=== PATIENT | male | born 1995 | race Caucasian/White ===

== ENCOUNTER 2016-05-30 21:24 | Emergency (ER) | payer OTHER ==
[2016-05-30 22:02] LABS: MEAN CORPUSCULAR HEMOGLOBIN 30.4 pg (27.0-33.0); MEAN CORPUSCULAR HGB CONC 34.2 g/dl (32.0-36.5); MEAN CORPUSCULAR VOLUME 88.9 fl (80.0-96.0); RED CELL DISTRIBUTION WIDTH 12.1 % (11.5-14.5); WHITE BLOOD COUNT 7.2 K/mm3 (4.0-10.0)
[2016-05-30 22:38] LABS: BENZODIAZEPINES URINE NEGATIVE (NEGATIVE); COCAINE METABOLITE URINE NEGATIVE (NEGATIVE); CONTROL LINE INT CTR LINE PRESENT; METHADONE URINE NEGATIVE (NEGATIVE); OPIATES URINE POSITIVE (NEGATIVE); TRICYCLIC ANTIDEPRESS URINE NEGATIVE (NEGATIVE)
[2016-05-30 22:39] LABS: AMPHETAMINES LEVEL URINE POSITIVE (NEGATIVE)
[2016-05-30 22:51] LABS: ALBUMIN 4.7 GM/DL (3.2-5.2); ALBUMIN/GLOBULIN RATIO 1.62 (1.00-1.93); ALKALINE PHOSPHATASE 54 U/L (45-117); ALT/SGPT 23 U/L (12-78); ANION GAP 11 MEQ/L (8-16); AST/SGOT 23 U/L (15-37); BILIRUBIN,DIRECT 0.3 MG/DL (0.0-0.2); BILIRUBIN,TOTAL 1.2 MG/DL (0.2-1.0); BLOOD UREA NITROGEN 18 MG/DL (7-18); CALCIUM LEVEL 8.8 MG/DL (8.5-10.1); CARBON DIOXIDE LEVEL 28 MEQ/L (21-32); CHLORIDE LEVEL 101 MEQ/L (98-107); CREATININE FOR GFR 1.12 MG/DL (0.70-1.30); GLOMERULAR FILTRATION RATE > 60.0 (>60); GLUCOSE, FASTING 78 MG/DL (70-105); SODIUM LEVEL 140 MEQ/L (136-145); TOTAL PROTEIN 7.6 GM/DL (6.4-8.2)
--- NOTE | 2016-05-30 23:15 | EDDOCDS ---
Physician Documentation [facility] Name: Aden Zaman Jr Age: 21 yrs Sex: Male : 1995 Arrival Date: 05/30/2016 Time: 21:24 Bed 30 Private MD: Disposition: 05/30/16 23:08 Discharged to Home/Self Care. Impression: Major depressive disorder, single episode, mild. - Condition is Stable. - Discharge Instructions: Depression, Adult. - Medication Reconciliation, Local Pharmacy Hours form. - Follow up: [facility]; When: 2 - 3 days; Reason: Recheck today's complaints. - Problem is new. - Symptoms are resolved. - Notes: You were seen in the ED for a mental health evaluation. Bloodwork showed no acute findings and Psychiatry was consulted, who recommended that as you are having no thoughts of harming self or others you may return home to follow up with mental health as an outpatient for the depression - please call in the morning to arrange to be seen. Return to the ED for any worsening depression, thoughts of harming self or others or any other concerns. Historical: - Allergies: no known allergies; - Home Meds: 1. Carol Oral daily 2. Zoloft 100 mg oral tab (Last dose: 05/30/2016) 3. clonidine HCl 0.2 mg oral tab 1 tab 2 times per day (Last dose: 05/30/2016) 4. proair 2 puffs every 6 hours as needed 5. Hydroxyzine Unknown Oral (Last dose: 05/30/2016) - PMHx: Anxiety; Depression; Allergies, Seasonal; ADHD; - PSHx: jaw surgery; - Social history: Smoking status: Patient uses tobacco products, current every day smoker. Patient/guardian denies using alcohol, street drugs, No barriers to communication noted, The patient speaks fluent Burmese, Speaks appropriately for age. - Family history: Not pertinent. - : The pt / caregiver states he / she is not on anticoagulants. Home medication list is obtained from. - Exposure Risk Screening:: None identified. Vital Signs: 05/30 21:39 BP 129 / 67; Pulse 54; Resp 18; Temp 97.8; Pulse Ox 98% ; Height 6 ft. (182.88 cm); ajs Pain 0/10; MDM: 21:48 Consult PFS/PSA/Foreign Correspondent ordered. br1 21:48 Consult PFS/PSA/Foreign Correspondent: Patient's case requires discussion with on-call br1 Psychiatrist ordered. 21:48 PSA/PFS to call Nursing Mechanism Assembler, to enter patient data on [place] if patient br1 involuntarily admitted or transferred for SI or HI ordered. 21:48 Confirm accurate psychiatric medication list and times of last dosage ordered. br1 21:48 Detain Pt Until Medically/PFS Cleared ordered. br1 21:49 Acetaminophen Level Ordered. EDMS 21:49 Basic Metabolic Profile Ordered. EDMS 21:49 Complete Blood Count Ordered. EDMS 21:49 Drug Eval Toxicology ED Only Ordered. EDMS 21:49 Ethyl Alcohol (ethanol) Ordered. EDMS 21:49 Liver Profile Ordered. EDMS 21:49 Salicylate Level Ordered. EDMS 21:49 Thyroid Stimulating Hormone Ordered. EDMS 22:46 Drug Eval Toxicology ED Only Reviewed. br1 22:46 Complete Blood Count Reviewed. br1 22:57 Consult PFS/PSA/Foreign Correspondent complete. cl 22:57 Consult PFS/PSA/Foreign Correspondent: Patient's case requires discussion with on-call cl Psychiatrist complete. 22:57 PSA/PFS to call Nursing Mechanism Assembler, to enter patient data [place] if patient cl involuntarily admitted or transferred for SI or HI complete. 23:05 MHE Legal paperwork was scanned into [employer] and attached to record. cl 23:06 Acetaminophen Level Reviewed. br1 23:06 Liver Profile Reviewed. br1 23:06 Salicylate Level Reviewed. br1 23:06 Basic Metabolic Profile Reviewed. br1 23:06 Ethyl Alcohol (ethanol) Reviewed. br1 23:06 Thyroid Stimulating Hormone Reviewed. br1 23:07 Consult PFS/PSA/Socail Worker: Cleared medically for eval ordered. br1 23:08 Consult PFS/PSA/Socail Worker: Cleared medically for eval complete. cl Signatures: Dispatcher [employer] EDMS Sergio Nicole, PSA PSA cl Al Prakash MD MD br1 Kelley Corona,MOLD FILLER PLASTIC DOLLS MOLD FILLER PLASTIC DOLLS Elvira Riggs,RN RN ead MTDD
--- NOTE | 2016-05-30 23:15 | EDDOCDS ---
Nurse's Notes [facility] Name: Aden Zaman Jr Age: 21 yrs Sex: Male : 1995 Arrival Date: 05/30/2016 Time: 21:24 Bed 30 Private MD: Diagnosis: Major depressive disorder, single episode, mild Presentation: 05/30 21:41 Presenting complaint: Patient states: pt brought in by police. pt reports on/off ead relationship with girlfriend. pt also reports his uncle is sick. pt states he lives at [facility]. Pt denies SI/HI. Denies depression, reports anxiety. Presenting complaint: Patient states: pt also now reporting "I posted on facebook that I just wanna .". Mental Health Triage Level: Level 1- Pt displays no suicidal or homicidal ideations and does not appear to be a danger to self or others. Adult Sepsis Screening: The patient does not have new or worsening altered mentation. Patient's respiratory rate is less than 22. Systolic blood pressure is greater than 100. Patient has a qSOFA score of 0- Negative Sepsis Screen. Suicide/Homicide risk assessment- the patient denies having any suicidal and/or homicidal ideations and does not present with any other emotional, behavioral or mental health complaints. Status: Patient is not a parts and service manager or dependent. Transition of care: patient was not received from another setting of care. 21:41 Acuity: FRANKY Level 3 ead 21:41 Method Of Arrival: Police Car ead Triage Assessment: 21:45 General: Appears in no apparent distress, Behavior is cooperative, rocking side to side ead in bed, . Pain: Denies pain. HIV screening NA for this visit Offered previously. The patient is triaged at the bedside. See Assessment in Nurses Notes section of ED record. Neurological: Level of Consciousness is awake, alert, Oriented to person, place, time. Respiratory: Airway is patent Respiratory effort is even, unlabored. Derm: Skin is pink, warm & dry. Historical: - Allergies: no known allergies; - Home Meds: 1. Carol Oral daily 2. Zoloft 100 mg oral tab (Last dose: 05/30/2016) 3. clonidine HCl 0.2 mg oral tab 1 tab 2 times per day (Last dose: 05/30/2016) 4. proair 2 puffs every 6 hours as needed 5. Hydroxyzine Unknown Oral (Last dose: 05/30/2016) - PMHx: Anxiety; Depression; Allergies, Seasonal; ADHD; - PSHx: jaw surgery; - Social history: Smoking status: Patient uses tobacco products, current every day smoker. Patient/guardian denies using alcohol, street drugs, No barriers to communication noted, The patient speaks fluent Chadian, Speaks appropriately for age. - Family history: Not pertinent. - : The pt / caregiver states he / she is not on anticoagulants. Home medication list is obtained from. - Exposure Risk Screening:: None identified. Screenin:09 Screening information is obtained from the patient. Fall risk: No risks identified. kas2 Assistance ADL's: requires no assistance with activities of daily living. Abuse/DV Screen: The patient / caregiver reports he/she is: not in a situation that causes fear, pain or injury. Nutritional screening: No deficits noted. Advance Directives: Currently, there is no health care proxy. There is no active DNR order. There is no living will. There is no Power of Tours Hostess. home support is adequate. Assessment: 22:08 General: Appears in no apparent distress, comfortable, well nourished, well groomed, kas2 Behavior is anxious, cooperative. Pain: Denies pain. Neurological: Level of Consciousness is awake, alert, Oriented to person, place, time. Cardiovascular: Heart tones present Rhythm is regular. Respiratory: Airway is patent Respiratory effort is even, unlabored, Respiratory pattern is regular, symmetrical, Breath sounds are clear. Derm: Skin is intact, is healthy with good turgor, Skin is dry, Skin is pink, warm & dry. normal, Skin temperature is warm. 23:07 General: Appears in no apparent distress, comfortable, Behavior is cooperative. [facility] General: pt sitting on stretcher staff observing . Respiratory: Airway is patent Respiratory effort is even, unlabored. 23:13 Reassessment: Patient appears in no apparent distress at this time. [facility] Mental Health Eval: 22:24 Mental health consult is initiated at 22:00. Status: The patient is not a parts and service manager or dependent. [facility] Behavior[facility]: The patient is not an established patient of [facility]. Referral Information: Evaluation referral is generated by a police agency: [employer] #[id number] pick-up order 9:41. The patient was referred for evaluation because Pt reports writing on Facebook, "If you want to see someone jump off a bridge, come to watch", Pt denies being suicidal or wanting to kill anyone. Pt reports writing it because he wants his XGF to be with him again, but realizes she is only 17 and giving him mixed messages about their short relationship. 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 Pt admits to no inpatient psyche history except going to [facility] as a foster child and being turned around after they interviewed him. Pt reports he has a hard time finding the right GF and falls in love to quickly. Pt reports he is compliant with his medications, and therapy, but does not like his female therapist, prefers a male counselor. Pt resides at [facility] and likes living there, per pt. Pt reports no change in sleeping, or eating, no drug or alcohol use, he is on Probation for stealing a 2015 jeep out of a dealer ship, and is taking it "very seriously" Pt denies being depressed, just feels sick in side and needed to talk to someone. Subjective: The patients chief complaint is Lonely and broken hearted, trying to get his GF back, pt reports "being stupid", pt is CFS and will try to get a male counselor if possible from [facility]. Delusions are denied. Patient's mood is anxious, Hallucinations are denied. Mental Health history: ADHD, anxiety, depression, Mental Health Admissions: [facility] at age 15, turned around at the door after being interviewed, per pt Current Outpatient Mental Health Services: Therapist / Agency: [facility], agency and is a resident. Current living environment is The patient currently lives in a [facility] residence. The patient is single. Patient presents to Emergency Department with the following symptoms within the past 2 weeks: agitation, anger. Substance abuse: Pt denies. Mental status exam: Patients appearance is appropriate, Patient's behavior is cooperative, Speech is normal. Affect is appropriate. Mood is anxious. Hallucinations are denied. Appetite is normal. Memory is good. Energy level is tires easily. Content of thought is normal. Thought process is intact. Cognitive level is oriented to person, place, time and situation Patient's insight is fair. Judgement is poor. Rapport with interviewer is good. Suicidal Ideation is denied. Homicidal ideation is not present. Disposition: Medically cleared for disposition by Al Prakash MD. 22:55 Disposition: Psychiatric Consult is performed by phone with Dr Addy Bernabe The cs patient has a safe destination which is [facility] with follow up tomorrow with his counselor The patient's discharge transportation plan is by cab. A cab voucher is provided to the patient. Vital Signs: 21:39 BP 129 / 67; Pulse 54; Resp 18; Temp 97.8; Pulse Ox 98% ; Height 6 ft. (182.88 cm); ajs Pain 0/10; Vitals: 21:24 Log In time N/A- police car arrival. ead ED Course: 21:28 Patient visited by Tammy Lowry. gjb 21:28 Patient moved to Waiting gjb 21:29 Patient moved to I ajs 21:39 Al Prakash MD is Attending Physician. br1 21:44 Triage Initiated ead 21:46 Patient visited by Radha Leon. ajs 21:46 Pt greeted and oriented to ED. Patient advised of names of staff involved in care, ajs location of call [place], wait times and NPO status. Patient has correct armband on for positive identification. Placed in psych safe attire. Bed in low position. Call light in reach. Side rails up X 1. Security observing. Property removed, inventory done, secured in belongings bag- placed in locked locker. Psych Safety Check: Location: PSYCH OVERFLOW 29. Visual Assessment: Cooperative. 22:00 Acetaminophen Level Sent. ajs 22:00 Basic Metabolic Profile Sent. ajs 22:00 Complete Blood Count Sent. ajs 22:00 Drug Eval Toxicology ED Only Sent. ajs 22:00 Ethyl Alcohol (ethanol) Sent. ajs 22:00 Liver Profile Sent. ajs 22:00 Salicylate Level Sent. ajs 22:00 Thyroid Stimulating Hormone Sent. ajs 22:01 Patient visited by Omero Elena. jp4 22:09 Patient visited by Cadence Trent RN. kas2 22:14 Patient visited by Omero Elena. jp4 22:28 Patient visited by Omero Elena. jp4 22:30 Patient visited by Al Prakash MD. br1 22:35 Patient visited by Cadence Trent RN. kas2 22:36 Patient visited by Radha Leon. ajs 22:36 Diet: Patient given regular meal. Tolerated well. ajs 22:37 Patient moved to 30 ajs 22:45 Patient visited by Omero Elena. jp4 22:56 Patient visited by Omero Elena. jp4 23:05 E Legal paperwork was scanned into [employer] and attached to record. cl 23:07 Kelley Corona LPN is Primary Nurse. slm 23:08 [facility] is Referral Physician. br1 23:14 Patient visited by Kelley Corona LPN. slm 23:14 The patient / caregiver is instructed regarding the plan of care and ED course. slm 23:14 No IV's were initiated during this patient's visit. No procedures done that require slm assistance. Labs drawn. (by ED staff). Sent per order to lab. Urine collected. Urine specimen sent to lab. Attachments: 23:05 E Legal paperwork cl Order Results: Lab Order: Acetaminophen Level; SPEC'M 05/30/16 21:52 Test: ACETAMINOPHEN LEVEL; Value: < 2.0; Range: 10.0-30.0; Abnormal: Below low normal; Units: UG/ML; Status: F Lab Order: Basic Metabolic Profile; SPEC'M 05/30/16 21:52 Test: GLUCOSE, FASTING; Value: 78; Range: 70-105; Units: MG/DL; Status: F Test: BLOOD UREA NITROGEN; Value: 18; Range: 7-18; Units: MG/DL; Status: F Test: CREATININE FOR GFR; Value: 1.12; Range: 0.70-1.30; Units: MG/DL; Status: F Test: GLOMERULAR FILTRATION RATE; Value: > 60.0; Range: >60; Status: F Test: SODIUM LEVEL; Value: 140; Range: 136-145; Units: MEQ/L; Status: F Test: POTASSIUM SERUM; Value: 4.0; Range: 3.5-5.1; Units: MEQ/L; Status: F Test: CHLORIDE LEVEL; Value: 101; Range: 98-107; Units: MEQ/L; Status: F Test: CARBON DIOXIDE LEVEL; Value: 28; Range: 21-32; Units: MEQ/L; Status: F Test: ANION GAP; Value: 11; Range: 8-16; Units: MEQ/L; Status: F Test: CALCIUM LEVEL; Value: 8.8; Range: 8.5-10.1; Units: MG/DL; Status: F Test Note: ; Units are mL/min/1.73 m2 Chronic Kidney Disease Staging per NKF: Stage I & II GFR >=60 Normal to Mildly Decreased Stage III GFR 30-59 Moderately Decreased Stage IV GFR 15-29 Severely Decreased Stage V GFR <15 Very Little GFR Left ESRD GFR <15 on X RAY TECH Lab Order: Complete Blood Count; SPEC'M 05/30/16 21:52 Test: WHITE BLOOD COUNT; Value: 7.2; Range: 4.0-10.0; Units: K/mm3; Status: F Test: RED BLOOD COUNT; Value: 5.19; Range: 4.30-6.10; Units: M/mm3; Status: F Test: HEMOGLOBIN; Value: 15.8; Range: 14.0-18.0; Units: g/dl; Status: F Test: HEMATOCRIT; Value: 46.2; Range: 42.0-52.0; Units: %; Status: F Test: MEAN CORPUSCULAR VOLUME; Value: 88.9; Range: 80.0-96.0; Units: fl; Status: F Test: MEAN CORPUSCULAR HEMOGLOBIN; Value: 30.4; Range: 27.0-33.0; Units: pg; Status: F Test: MEAN CORPUSCULAR HGB CONC; Value: 34.2; Range: 32.0-36.5; Units: g/dl; Status: F Test: RED CELL DISTRIBUTION WIDTH; Value: 12.1; Range: 11.5-14.5; Units: %; Status: F Test: PLATELET COUNT, AUTOMATED; Value: 230; Range: 150-450; Units: k/mm3; Status: F Lab Order: Drug Eval Toxicology ED Only; SPEC'M 05/30/16 22:15 Test: AMPHETAMINES LEVEL URINE; Value: POSITIVE; Range: NEGATIVE; Abnormal: Above high normal; Status: F Test: BARBITURATES URINE; Value: NEGATIVE; Range: NEGATIVE; Status: F Test: BENZODIAZEPINES URINE; Value: NEGATIVE; Range: NEGATIVE; Status: F Test: CANNABINOIDS URINE; Value: NEGATIVE; Range: NEGATIVE; Status: F Test: COCAINE METABOLITE URINE; Value: NEGATIVE; Range: NEGATIVE; Status: F Test: METHADONE URINE; Value: NEGATIVE; Range: NEGATIVE; Status: F Test: OPIATES URINE; Value: POSITIVE; Range: NEGATIVE; Abnormal: Above high normal; Status: F Test: TRICYCLIC ANTIDEPRESS URINE; Value: NEGATIVE; Range: NEGATIVE; Status: F Test Note: ; ALL PRESUMPTIVE POSITIVE FINDINGS ARE UNCONFIRMED NORMAL VALUES THRESHOLD IN NG/ML AMPHETAMINES 1000 METHAMPHETAMINES 1000 BARBITURATES 300 BENZODIAZEPINES 300 CANNABINOIDS (THC) 50 COCAINE METABOLITE 300 METHADONE 300 OPIATES 300 PHENCYCLIDINE 25 TRICYCLIC ANTIDEPRESSANTS 1000 RESULTS ARE FOR MEDICAL PURPOSES ONLY. ALL URINE SPECIMENS WILL BE SAVED FOR 3 DAYS. IF CONFIRMATION OF A PRESUMPTIVE POSTIVE SCREEN RESULT IS DESIRED, CALL CHEMISTRY ([phone]) AND REQUEST URINE TO BE SENT TO REFERENCE LAB. FOR A LIST OF CLOSELY RELATED COMPOUNDS PLEASE CALL THE LAB. Lab Order: Ethyl Alcohol (ethanol); SPEC'M 05/30/16 21:52 Test: ETHYL ALCOHOL (ETHANOL); Value: < 0.003; Range: 0.000-0.010; Units: %; Status: F Lab Order: Liver Profile; SPEC'M 05/30/16 21:52 Test: AST/SGOT; Value: 23; Range: 15-37; Units: U/L; Status: F Test: ALT/SGPT; Value: 23; Range: 12-78; Units: U/L; Status: F Test: ALKALINE PHOSPHATASE; Value: 54; Range: 45-117; Units: U/L; Status: F Test: BILIRUBIN,TOTAL; Value: 1.2; Range: 0.2-1.0; Abnormal: Above high normal; Units: MG/DL; Status: F Test: BILIRUBIN,DIRECT; Value: 0.3; Range: 0.0-0.2; Abnormal: Above high normal; Units: MG/DL; Status: F Test: TOTAL PROTEIN; Value: 7.6; Range: 6.4-8.2; Units: GM/DL; Status: F Test: ALBUMIN; Value: 4.7; Range: 3.2-5.2; Units: GM/DL; Status: F Test: ALBUMIN/GLOBULIN RATIO; Value: 1.62; Range: 1.00-1.93; Status: F Lab Order: Salicylate Level; SPEC'M 05/30/16 21:52 Test: SALICYLATE LEVEL; Value: < 1.7; Range: 5.0-30.0; Abnormal: Below low normal; Units: MG/DL; Status: F Lab Order: Thyroid Stimulating Hormone; SPEC'M 05/30/16 21:52 Test: THYROID STIMULATING HORMONE; Value: 0.572; Range: 0.358-3.740; Units: uIU/ML; Status: F Outcome: 23:08 Discharge ordered by Provider. br1 23:13 Discharge Assessment: Patient awake, alert and oriented x 3. No cognitive and/or slm functional deficits noted. Patient verbalized understanding of disposition instructions. patient administered narcotics - no. The following High Risk Discharge criteria are identified: None. Discharged to home ambulatory, via cab pt seen by and LIZZIE no concerns. Condition: good. Discharge instructions given to patient, Instructed on discharge instructions, follow up and referral plans. Demonstrated understanding of instructions, Pt was receptive of discharge instructions/ teaching. No special radiology studies were completed. 23:15 Patient left the ED. slm Signatures: Sergio Nicole, PSA PSA cl Simon Hester, PSA PSA cs Al Prakash MD MD br1 Radha Leon Stephanie, LPN LPN slm Elvira Valentine,RN RN Omero Ivory Gabriela gjb Smith, KimRN RN kas2 AUDREY
--- NOTE | 2016-06-02 00:16 | EDDOCDS ---
Physician Documentation [facility] Name: Aden Zaman Jr Age: 21 yrs Sex: Male : 1995 Arrival Date: 05/30/2016 Time: 21:24 Bed 30 Private MD: Disposition: 05/30/16 23:08 Discharged to Home/Self Care. Impression: Major depressive disorder, single episode, mild. - Condition is Stable. - Discharge Instructions: Depression, Adult. - Medication Reconciliation, Local Pharmacy Hours form. - Follow up: [facility]; When: 2 - 3 days; Reason: Recheck today's complaints. - Problem is new. - Symptoms are resolved. - Notes: You were seen in the ED for a mental health evaluation. Bloodwork showed no acute findings and Psychiatry was consulted, who recommended that as you are having no thoughts of harming self or others you may return home to follow up with mental health as an outpatient for the depression - please call in the morning to arrange to be seen. Return to the ED for any worsening depression, thoughts of harming self or others or any other concerns. Historical: - Allergies: no known allergies; - Home Meds: 1. Carol Oral daily 2. Zoloft 100 mg oral tab (Last dose: 05/30/2016) 3. clonidine HCl 0.2 mg oral tab 1 tab 2 times per day (Last dose: 05/30/2016) 4. proair 2 puffs every 6 hours as needed 5. Hydroxyzine Unknown Oral (Last dose: 05/30/2016) - PMHx: Anxiety; Depression; Allergies, Seasonal; ADHD; - PSHx: jaw surgery; - Social history: Smoking status: Patient uses tobacco products, current every day smoker. Patient/guardian denies using alcohol, street drugs, No barriers to communication noted, The patient speaks fluent Niuean, Speaks appropriately for age. - Family history: Not pertinent. - : The pt / caregiver states he / she is not on anticoagulants. Home medication list is obtained from. - Exposure Risk Screening:: None identified. Vital Signs: 05/30 21:39 BP 129 / 67; Pulse 54; Resp 18; Temp 97.8; Pulse Ox 98% ; Height 6 ft. (182.88 cm); ajs Pain 0/10; MDM: 21:48 Consult PFS/PSA/Grants Administrator ordered. br1 21:48 Consult PFS/PSA/Grants Administrator: Patient's case requires discussion with on-call br1 Psychiatrist ordered. 21:48 PSA/PFS to call Nursing Rubber Grinder, to enter [place] data [place] if patient br1 involuntarily admitted or transferred for SI or HI ordered. 21:48 Confirm accurate psychiatric medication list and times of last dosage ordered. br1 21:48 Detain Pt Until Medically/PFS Cleared ordered. br1 21:49 Acetaminophen Level Ordered. EDMS 21:49 Basic Metabolic Profile Ordered. EDMS 21:49 Complete Blood Count Ordered. EDMS 21:49 Drug Eval Toxicology ED Only Ordered. EDMS 21:49 Ethyl Alcohol (ethanol) Ordered. EDMS 21:49 Liver Profile Ordered. EDMS 21:49 Salicylate Level Ordered. EDMS 21:49 Thyroid Stimulating Hormone Ordered. EDMS 22:46 Drug Eval Toxicology ED Only Reviewed. br1 22:46 Complete Blood Count Reviewed. br1 22:57 Consult PFS/PSA/Grants Administrator complete. cl 22:57 Consult PFS/PSA/Grants Administrator: Patient's case requires discussion with on-call cl Psychiatrist complete. 22:57 PSA/PFS to call Nursing Rubber Grinder, to enter patient data [place] if patient cl involuntarily admitted or transferred for SI or HI complete. 23:05 MHE Legal paperwork was scanned into [employer] and attached to record. cl 23:06 Acetaminophen Level Reviewed. br1 23:06 Liver Profile Reviewed. br1 23:06 Salicylate Level Reviewed. br1 23:06 Basic Metabolic Profile Reviewed. br1 23:06 Ethyl Alcohol (ethanol) Reviewed. br1 23:06 Thyroid Stimulating Hormone Reviewed. br1 23:07 Consult PFS/PSA/Socail Worker: Cleared medically for eval ordered. br1 23:08 Consult PFS/PSA/Socail Worker: Cleared medically for eval complete. cl 06/01 08:44 T-Sheet-- Draft Copy was scanned into [employer] and attached to record. gb Signatures: Dispatcher [employer] EDMS Sergio Nicole, PSA PSA cl Arlin Smith, Reg Reg gb Al Prakash MD MD br1 Kelley Corona LPN LPN Elvira Riggs,RN RN em The chart was reviewed and I authenticate all verbal orders and agree with the evaluation and treatment provided.Attachments: 06/01 08:44 T-Sheet-- Draft Copy gb Chart Complete MTDD
--- NOTE | 2016-06-02 00:16 | EDDOCDS ---
Physician Documentation [facility] Name: Aden Zaman Jr Age: 21 yrs Sex: Male : 1995 Arrival Date: 05/30/2016 Time: 21:24 Bed 30 Private MD: Disposition: 05/30/16 23:08 Discharged to Home/Self Care. Impression: Major depressive disorder, single episode, mild. - Condition is Stable. - Discharge Instructions: Depression, Adult. - Medication Reconciliation, Local Pharmacy Hours form. - Follow up: [facility]; When: 2 - 3 days; Reason: Recheck today's complaints. - Problem is new. - Symptoms are resolved. - Notes: You were seen in the ED for a mental health evaluation. Bloodwork showed no acute findings and Psychiatry was consulted, who recommended that as you are having no thoughts of harming self or others you may return home to follow up with mental health as an outpatient for the depression - please call in the morning to arrange to be seen. Return to the ED for any worsening depression, thoughts of harming self or others or any other concerns. Historical: - Allergies: no known allergies; - Home Meds: 1. Carol Oral daily 2. Zoloft 100 mg oral tab (Last dose: 05/30/2016) 3. clonidine HCl 0.2 mg oral tab 1 tab 2 times per day (Last dose: 05/30/2016) 4. proair 2 puffs every 6 hours as needed 5. Hydroxyzine Unknown Oral (Last dose: 05/30/2016) - PMHx: Anxiety; Depression; Allergies, Seasonal; ADHD; - PSHx: jaw surgery; - Social history: Smoking status: Patient uses tobacco products, current every day smoker. Patient/guardian denies using alcohol, street drugs, No barriers to communication noted, The patient speaks fluent [place], Speaks appropriately for age. - Family history: Not pertinent. - : The pt / caregiver states he / she is not on anticoagulants. Home medication list is obtained from. - Exposure Risk Screening:: None identified. Vital Signs: 05/30 21:39 BP 129 / 67; Pulse 54; Resp 18; Temp 97.8; Pulse Ox 98% ; Height 6 ft. (182.88 cm); ajs Pain 0/10; MDM: 21:48 Consult PFS/PSA/Desizing Pad Operator ordered. br1 21:48 Consult PFS/PSA/Desizing Pad Operator: Patient's case requires discussion with on-call br1 Psychiatrist ordered. 21:48 PSA/PFS to call Nursing Traffic Coordinator, to enter patient data on [place] Safe Act if patient br1 involuntarily admitted or transferred for SI or HI ordered. 21:48 Confirm accurate psychiatric medication list and times of last dosage ordered. br1 21:48 Detain Pt Until Medically/PFS Cleared ordered. br1 21:49 Acetaminophen Level Ordered. EDMS 21:49 Basic Metabolic Profile Ordered. EDMS 21:49 Complete Blood Count Ordered. EDMS 21:49 Drug Eval Toxicology ED Only Ordered. EDMS 21:49 Ethyl Alcohol (ethanol) Ordered. EDMS 21:49 Liver Profile Ordered. EDMS 21:49 Salicylate Level Ordered. EDMS 21:49 Thyroid Stimulating Hormone Ordered. EDMS 22:46 Drug Eval Toxicology ED Only Reviewed. br1 22:46 Complete Blood Count Reviewed. br1 22:57 Consult PFS/PSA/Desizing Pad Operator complete. cl 22:57 Consult PFS/PSA/Desizing Pad Operator: Patient's case requires discussion with on-call cl Psychiatrist complete. 22:57 PSA/PFS to call Nursing Traffic Coordinator, to enter patient data [place] Safe [place] if patient cl involuntarily admitted or transferred for SI or HI complete. 23:05 [facility] Legal paperwork was scanned into [employer] and attached to record. cl 23:06 Acetaminophen Level Reviewed. br1 23:06 Liver Profile Reviewed. br1 23:06 Salicylate Level Reviewed. br1 23:06 Basic Metabolic Profile Reviewed. br1 23:06 Ethyl Alcohol (ethanol) Reviewed. br1 23:06 Thyroid Stimulating Hormone Reviewed. br1 23:07 Consult PFS/PSA/Socail Worker: Cleared medically for eval ordered. br1 23:08 Consult PFS/PSA/Socail Worker: Cleared medically for eval complete. cl 06/01 08:44 T-Sheet-- Draft Copy was scanned into [employer] and attached to record. gb Signatures: Dispatcher [employer] EDMS Sergio Nicole, PSA PSA cl Arlin Smith, Reg Reg gb Al Prakash MD MD br1 Kelley Corona LPN LPN Elvira iRggs,RN RN em The chart was reviewed and I authenticate all verbal orders and agree with the evaluation and treatment provided.Attachments: 06/01 08:44 T-Sheet-- Draft Copy gb Chart Complete MTDD
--- NOTE | 2016-06-02 00:16 | EDDOCDS ---
Nurse's Notes [facility] Name: Aden Zaman Jr Age: 21 yrs Sex: Male : 1995 Arrival Date: 05/30/2016 Time: 21:24 Bed 30 Private MD: Diagnosis: Major depressive disorder, single episode, mild Presentation: 05/30 21:41 Presenting complaint: Patient states: pt brought in by police. pt reports on/off ead relationship with girlfriend. pt also reports his uncle is sick. pt states he lives at [facility]. Pt denies SI/HI. Denies depression, reports anxiety. Presenting complaint: Patient states: pt also now reporting "I posted on facebook that I just wanna .". Mental Health Triage Level: Level 1- Pt displays no suicidal or homicidal ideations and does not appear to be a danger to self or others. Adult Sepsis Screening: The patient does not have new or worsening altered mentation. Patient's respiratory rate is less than 22. Systolic blood pressure is greater than 100. Patient has a qSOFA score of 0- Negative Sepsis Screen. Suicide/Homicide risk assessment- the patient denies having any suicidal and/or homicidal ideations and does not present with any other emotional, behavioral or mental health complaints. Status: Patient is not a water softener service supervisor or dependent. Transition of care: patient was not received from another setting of care. 21:41 Acuity: FRANKY Level 3 ead 21:41 Method Of Arrival: Police Car ead Triage Assessment: 21:45 General: Appears in no apparent distress, Behavior is cooperative, rocking side to side ead in bed, . Pain: Denies pain. HIV screening NA for this visit Offered previously. The patient is triaged at the bedside. See Assessment in Nurses Notes section of ED record. Neurological: Level of Consciousness is awake, alert, Oriented to person, place, time. Respiratory: Airway is patent Respiratory effort is even, unlabored. Derm: Skin is pink, warm & dry. Historical: - Allergies: no known allergies; - Home Meds: 1. Carol Oral daily 2. Zoloft 100 mg oral tab (Last dose: 05/30/2016) 3. clonidine HCl 0.2 mg oral tab 1 tab 2 times per day (Last dose: 05/30/2016) 4. proair 2 puffs every 6 hours as needed 5. Hydroxyzine Unknown Oral (Last dose: 05/30/2016) - PMHx: Anxiety; Depression; Allergies, Seasonal; ADHD; - PSHx: jaw surgery; - Social history: Smoking status: Patient uses tobacco products, current every day smoker. Patient/guardian denies using alcohol, street drugs, No barriers to communication noted, The patient speaks fluent [place]er, Speaks appropriately for age. - Family history: Not pertinent. - : The pt / caregiver states he / she is not on anticoagulants. Home medication list is obtained from. - Exposure Risk Screening:: None identified. Screenin:09 Screening information is obtained from the patient. Fall risk: No risks identified. kas2 Assistance ADL's: requires no assistance with activities of daily living. Abuse/DV Screen: The patient / caregiver reports he/she is: not in a situation that causes fear, pain or injury. Nutritional screening: No deficits noted. Advance Directives: Currently, there is no health care proxy. There is no active DNR order. There is no living will. There is no Power of [facility]. home support is adequate. Assessment: 22:08 General: Appears in no apparent distress, comfortable, well nourished, well groomed, kas2 Behavior is anxious, cooperative. Pain: Denies pain. Neurological: Level of Consciousness is awake, alert, Oriented to person, place, time. Cardiovascular: Heart tones present Rhythm is regular. Respiratory: Airway is patent Respiratory effort is even, unlabored, Respiratory pattern is regular, symmetrical, Breath sounds are clear. Derm: Skin is intact, is healthy with good turgor, Skin is dry, Skin is pink, warm & dry. normal, Skin temperature is warm. 23:07 General: Appears in no apparent distress, comfortable, Behavior is cooperative. [facility] General: pt sitting on stretcher staff observing . Respiratory: Airway is patent Respiratory effort is even, unlabored. 23:13 Reassessment: Patient appears in no apparent distress at this time. [facility] Mental Health Eval: 22:24 Mental health consult is initiated at 22:00. Status: The patient is not a water softener service supervisor or dependent. [facility] Behavioral Health: The patient is not an established patient of [facility] Behavioral Health. Referral Information: Evaluation referral is generated by a police agency: [employer] diaz #[id number] pick-up order 9:41. The patient was referred for evaluation because Pt reports writing on Facebook, "If you want to see someone jump off a bridge, come to watch", Pt denies being suicidal or wanting to kill anyone. Pt reports writing it because he wants his XGF to be with him again, but realizes she is only 17 and giving him mixed messages about their short relationship. 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 Pt admits to no inpatient psyche history except going to [facility] as a foster child and being turned around after they interviewed him. Pt reports he has a hard time finding the right GF and falls in love to quickly. Pt reports he is compliant with his medications, and therapy, but does not like his female therapist, prefers a male counselor. Pt resides at [facility] and likes living there, per pt. Pt reports no change in sleeping, or eating, no drug or alcohol use, he is on Probation for stealing a 2015 jeep out of a dealer ship, and is taking it "very seriously" Pt denies being depressed, just feels sick in side and needed to talk to someone. 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 Delusions are denied. Patient's mood is anxious, Hallucinations are denied. Mental Health history: ADHD, anxiety, depression, Mental Health Admissions: [facility] at age 15, turned around at the door after being interviewed, per pt Current Outpatient Mental Health Services: Therapist / Agency: [facility], agency and is a resident. Current living environment is The patient currently lives in a [facility] residence. The patient is single. Patient presents to Emergency Department with the following symptoms within the past 2 weeks: agitation, anger. Substance abuse: Pt denies. Mental status exam: Patients appearance is appropriate, Patient's behavior is cooperative, Speech is normal. Affect is appropriate. Mood is anxious. Hallucinations are denied. Appetite is normal. Memory is good. Energy level is tires easily. Content of thought is normal. Thought process is intact. Cognitive level is oriented to person, place, time and situation Patient's insight is fair. Judgement is poor. Rapport with interviewer is good. Suicidal Ideation is denied. Homicidal ideation is not present. Disposition: Medically cleared for disposition by Al Prakash MD. 22:55 Disposition: Psychiatric Consult is performed by phone with Dr Addy Bernabe The cs patient has a safe destination which is [facility] with follow up tomorrow with his counselor The patient's discharge transportation plan is by cab. A cab voucher is provided to the patient. Vital Signs: 21:39 BP 129 / 67; Pulse 54; Resp 18; Temp 97.8; Pulse Ox 98% ; Height 6 ft. (182.88 cm); ajs Pain 0/10; Vitals: 21:24 Log In time N/A- police car arrival. ead ED Course: 21:28 Patient visited by Tammy Lowry. gjb 21:28 Patient moved to Waiting gjb 21:29 Patient moved to I ajs 21:39 Al Prakash MD is Attending Physician. br1 21:44 Triage Initiated ead 21:46 Patient visited by Radha Leon. ajs 21:46 Pt greeted and oriented to ED. Patient advised of names of staff involved in care, ajs location of call [place], wait times and NPO status. Patient has correct armband on for positive identification. Placed in psych safe attire. Bed in low position. Call light in reach. Side rails up X 1. Security observing. Property removed, inventory done, secured in belongings bag- placed in locked locker. Psych Safety Check: Location: PSYCH OVERFLOW 29. Visual Assessment: Cooperative. 22:00 Acetaminophen Level Sent. ajs 22:00 Basic Metabolic Profile Sent. ajs 22:00 Complete Blood Count Sent. ajs 22:00 Drug Eval Toxicology ED Only Sent. ajs 22:00 Ethyl Alcohol (ethanol) Sent. ajs 22:00 Liver Profile Sent. ajs 22:00 Salicylate Level Sent. ajs 22:00 Thyroid Stimulating Hormone Sent. ajs 22:01 Patient visited by Omero Elena. jp4 22:09 Patient visited by Cadence Trent RN. kas2 22:14 Patient visited by Omero Elena. jp4 22:28 Patient visited by Omero Elena. jp4 22:30 Patient visited by Al Prakash MD. br1 22:35 Patient visited by Cadence Trent RN. kas2 22:36 Patient visited by Radha Leon. ajs 22:36 Diet: Patient given regular meal. Tolerated well. ajs 22:37 Patient moved to 30 ajs 22:45 Patient visited by Omero Elena. jp4 22:56 Patient visited by Omero Elena. jp4 23:05 E Legal paperwork was scanned into [employer] and attached to record. cl 23:07 Kelley Corona LPN is Primary Nurse. slm 23:08 [facility] is Referral Physician. br1 23:14 Patient visited by Kelley Corona LPN. slm 23:14 The patient / caregiver is instructed regarding the plan of care and ED course. slm 23:14 No IV's were initiated during this patient's visit. No procedures done that require [facility] assistance. Labs drawn. (by ED staff). Sent per order to lab. Urine collected. Urine specimen sent to lab. 06/01 08:44 T-Sheet-- Draft Copy was scanned into [employer] and attached to record. gb Attachments: 05/30 23:05 [facility] Legal paperwork cl Order Results: Lab Order: Acetaminophen Level; SPEC'M 05/30/16 21:52 Test: ACETAMINOPHEN LEVEL; Value: < 2.0; Range: 10.0-30.0; Abnormal: Below low normal; Units: UG/ML; Status: F Lab Order: Basic Metabolic Profile; SPEC'M 05/30/16 21:52 Test: GLUCOSE, FASTING; Value: 78; Range: 70-105; Units: MG/DL; Status: F Test: BLOOD UREA NITROGEN; Value: 18; Range: 7-18; Units: MG/DL; Status: F Test: CREATININE FOR GFR; Value: 1.12; Range: 0.70-1.30; Units: MG/DL; Status: F Test: GLOMERULAR FILTRATION RATE; Value: > 60.0; Range: >60; Status: F Test: SODIUM LEVEL; Value: 140; Range: 136-145; Units: MEQ/L; Status: F Test: POTASSIUM SERUM; Value: 4.0; Range: 3.5-5.1; Units: MEQ/L; Status: F Test: CHLORIDE LEVEL; Value: 101; Range: 98-107; Units: MEQ/L; Status: F Test: CARBON DIOXIDE LEVEL; Value: 28; Range: 21-32; Units: MEQ/L; Status: F Test: ANION GAP; Value: 11; Range: 8-16; Units: MEQ/L; Status: F Test: CALCIUM LEVEL; Value: 8.8; Range: 8.5-10.1; Units: MG/DL; Status: F Test Note: ; Units are mL/min/1.73 m2 Chronic Kidney Disease Staging per NKF: Stage I & II GFR >=60 Normal to Mildly Decreased Stage III GFR 30-59 Moderately Decreased Stage IV GFR 15-29 Severely Decreased Stage V GFR <15 Very Little GFR Left ESRD GFR <15 on DINING ROOM ATTENDANT Lab Order: Complete Blood Count; SPEC'M 05/30/16 21:52 Test: WHITE BLOOD COUNT; Value: 7.2; Range: 4.0-10.0; Units: K/mm3; Status: F Test: RED BLOOD COUNT; Value: 5.19; Range: 4.30-6.10; Units: M/mm3; Status: F Test: HEMOGLOBIN; Value: 15.8; Range: 14.0-18.0; Units: g/dl; Status: F Test: HEMATOCRIT; Value: 46.2; Range: 42.0-52.0; Units: %; Status: F Test: MEAN CORPUSCULAR VOLUME; Value: 88.9; Range: 80.0-96.0; Units: fl; Status: F Test: MEAN CORPUSCULAR HEMOGLOBIN; Value: 30.4; Range: 27.0-33.0; Units: pg; Status: F Test: MEAN CORPUSCULAR HGB CONC; Value: 34.2; Range: 32.0-36.5; Units: g/dl; Status: F Test: RED CELL DISTRIBUTION WIDTH; Value: 12.1; Range: 11.5-14.5; Units: %; Status: F Test: PLATELET COUNT, AUTOMATED; Value: 230; Range: 150-450; Units: k/mm3; Status: F Lab Order: Drug Eval Toxicology ED Only; SPEC'M 05/30/16 22:15 Test: AMPHETAMINES LEVEL URINE; Value: POSITIVE; Range: NEGATIVE; Abnormal: Above high normal; Status: F Test: BARBITURATES URINE; Value: NEGATIVE; Range: NEGATIVE; Status: F Test: BENZODIAZEPINES URINE; Value: NEGATIVE; Range: NEGATIVE; Status: F Test: CANNABINOIDS URINE; Value: NEGATIVE; Range: NEGATIVE; Status: F Test: COCAINE METABOLITE URINE; Value: NEGATIVE; Range: NEGATIVE; Status: F Test: METHADONE URINE; Value: NEGATIVE; Range: NEGATIVE; Status: F Test: OPIATES URINE; Value: POSITIVE; Range: NEGATIVE; Abnormal: Above high normal; Status: F Test: TRICYCLIC ANTIDEPRESS URINE; Value: NEGATIVE; Range: NEGATIVE; Status: F Test Note: ; ALL PRESUMPTIVE POSITIVE FINDINGS ARE UNCONFIRMED NORMAL VALUES THRESHOLD IN NG/ML AMPHETAMINES 1000 METHAMPHETAMINES 1000 BARBITURATES 300 BENZODIAZEPINES 300 CANNABINOIDS (THC) 50 COCAINE METABOLITE 300 METHADONE 300 OPIATES 300 PHENCYCLIDINE 25 TRICYCLIC ANTIDEPRESSANTS 1000 RESULTS ARE FOR MEDICAL PURPOSES ONLY. ALL URINE SPECIMENS WILL BE SAVED FOR 3 DAYS. IF CONFIRMATION OF A PRESUMPTIVE POSTIVE SCREEN RESULT IS DESIRED, CALL CHEMISTRY ([phone]) AND REQUEST URINE TO BE SENT TO REFERENCE LAB. FOR A LIST OF CLOSELY RELATED COMPOUNDS PLEASE CALL THE LAB. Lab Order: Ethyl Alcohol (ethanol); SPEC'M 05/30/16 21:52 Test: ETHYL ALCOHOL (ETHANOL); Value: < 0.003; Range: 0.000-0.010; Units: %; Status: F Lab Order: Liver Profile; SPEC'M 05/30/16 21:52 Test: AST/SGOT; Value: 23; Range: 15-37; Units: U/L; Status: F Test: ALT/SGPT; Value: 23; Range: 12-78; Units: U/L; Status: F Test: ALKALINE PHOSPHATASE; Value: 54; Range: 45-117; Units: U/L; Status: F Test: BILIRUBIN,TOTAL; Value: 1.2; Range: 0.2-1.0; Abnormal: Above high normal; Units: MG/DL; Status: F Test: BILIRUBIN,DIRECT; Value: 0.3; Range: 0.0-0.2; Abnormal: Above high normal; Units: MG/DL; Status: F Test: TOTAL PROTEIN; Value: 7.6; Range: 6.4-8.2; Units: GM/DL; Status: F Test: ALBUMIN; Value: 4.7; Range: 3.2-5.2; Units: GM/DL; Status: F Test: ALBUMIN/GLOBULIN RATIO; Value: 1.62; Range: 1.00-1.93; Status: F Lab Order: Salicylate Level; SPEC'M 05/30/16 21:52 Test: SALICYLATE LEVEL; Value: < 1.7; Range: 5.0-30.0; Abnormal: Below low normal; Units: MG/DL; Status: F Lab Order: Thyroid Stimulating Hormone; SPEC'M 05/30/16 21:52 Test: THYROID STIMULATING HORMONE; Value: 0.572; Range: 0.358-3.740; Units: uIU/ML; Status: F Outcome: 05/30 23:08 Discharge ordered by Provider. br1 23:13 Discharge Assessment: Patient awake, alert and oriented x 3. No cognitive and/or slm functional deficits noted. Patient verbalized understanding of disposition instructions. patient administered narcotics - no. The following High Risk Discharge criteria are identified: None. Discharged to home ambulatory, via cab pt seen by and LIZZIE no concerns. Condition: good. Discharge instructions given to patient, Instructed on discharge instructions, follow up and referral plans. Demonstrated understanding of instructions, Pt was receptive of discharge instructions/ teaching. No special radiology studies were completed. 23:15 Patient left the ED. slm Signatures: Sergio Nicole PSA PSA cl Sharlow, Charlie, PSA PSA cs Barnhardt, Gloria, Fermin Reg Al Prakash MD MD br1 Radha Leon Stephanie, LPN LPN Elvira Greco,RN RN Omero Ivory jp4 Tammy Lowry Kim,RN RN kas2 Chart Complete MTDD
== END 2016-05-30 23:15 | disposition home or self-care (01) ==
LOC: M ED 21:24
DX: F32.0 Major depressive disorder, single episode, mild (principal); F41.9 Anxiety disorder, unspecified; F90.9 Attention-deficit hyperactivity disorder, unspecified type; J30.2 Other seasonal allergic rhinitis; F17.200 Nicotine dependence, unspecified, uncomplicated; Z79.899 Other long term (current) drug therapy

== ENCOUNTER 2016-06-11 12:33 | Emergency (ER) | payer OTHER | END 2016-06-11 13:16 | disposition left against medical advice (07) | LOC: M ED 12:33 | DX: Z53.29 Procedure and treatment not carried out because of patient's decision for other reasons (principal) ==

== ENCOUNTER 2016-06-11 13:35 | Emergency (ER) | payer OTHER ==
--- NOTE | 2016-06-11 18:11 | EDDOCDS ---
Nurse's Notes [facility] Name: Aden Zaman Jr Age: 21 yrs Sex: Male : 1995 Arrival Date: 06/11/2016 Time: 13:35 Bed I9 / 22 Private MD: HANNA RAMÍREZ Diagnosis: Acute upper respiratory infection, unspecified;Acute pharyngitis Presentation: 06/11 13:39 Presenting complaint: Patient states: pt signed in to ER earlier, had to leave prior to ead being seen due to an appointment. pt now returned to be seen. Pt here for sore throat since Saturday, reports hx of strep. pt states symptoms feels similar to strep. Risk factors: Stridor is not present. Drooling is not present. Shortness of breath is not present. Cellulitis is not present. Adult Sepsis Screening: The patient does not have new or worsening altered mentation. Patient's respiratory rate is less than 22. Systolic blood pressure is greater than 100. Patient has a qSOFA score of 0- Negative Sepsis Screen. Suicide/Homicide risk assessment- the patient denies having any suicidal and/or homicidal ideations and does not present with any other emotional, behavioral or mental health complaints. Status: Patient is not a equipment service engineer or dependent. Transition of care: patient was not received from another setting of care. 13:39 Acuity: FRANKY Level 4 ead 13:39 Method Of Arrival: Walkin/Carried/Asstd ead Triage Assessment: 13:40 General: Appears in no apparent distress, comfortable, Behavior is appropriate for age, ead cooperative. Pain: Location: throat Pain currently is 6 out of 10 on a pain scale. HIV screening NA for this visit Offered previously. EENT: Reports pain when swallowing. Respiratory: Airway is patent Respiratory effort is even, unlabored. Derm: Skin is pink, warm & dry. Historical: - Allergies: no known allergies; - Home Meds: 1. clonidine HCl 0.2 mg Oral tab 1 tab 2 times per day 2. Zoloft 100 mg Oral tab once daily 3. proair 2 puffs every 6 hours as needed - PMHx: Allergies, Seasonal; Depression; Anxiety; ADHD; - PSHx: jaw surgery; - Social history: Smoking status: Patient uses tobacco products, current every day smoker. No barriers to communication noted, The patient speaks fluent Singaporean, Speaks appropriately for age. - Family history: Not pertinent. - : The pt / caregiver states he / she is not on anticoagulants. Home medication list is obtained from the patient, [employer] import data. - Exposure Risk Screening:: None identified. Screenin:40 Screening information is obtained from the patient. Fall risk: No risks identified. k Assistance ADL's: requires no assistance with activities of daily living. Abuse/DV Screen: The patient / caregiver reports he/she is: not in a situation that causes fear, pain or injury. Nutritional screening: No deficits noted. Advance Directives: Currently, there is no health care proxy. There is no active DNR order. There is no living will. There is no Power of Catering Sous Chef. Advance directive information has not previously been placed in an [facility] medical record. home support is adequate. Assessment: 16:40 General: Appears skin warm and dry color satisfactory. moist pink oral mucosa. easily jmk accommodates own saliva. throat reddened without exudate. chest CTA, abd soft and non distended ith bowel sounds present x 4. 17:45 General: Appears patiently awaiting exam.. [facility] Vital Signs: 13:36 BP 94 / 57; Pulse 58; Resp 18 S; Temp 97.5(O); Pulse Ox 100% on R/A; Weight 63.5 kg gr2 (R); Height 6 ft. 0 in. (182.88 cm) (R); Pain 4/10; 15:44 BP 100 / 56; Pulse 52; Resp 16; Temp 97.7; Pulse Ox 99% on R/A; Pain 6/10; ar3 13:36 Body Mass Index 18.99 (63.50 kg, 182.88 cm) gr2 Vitals: 13:36 Log In Time: June 11, 2016 at 13:36. gr2 15:54 Strep Screen is obtained and tested: Negative, a GATSNEG [facility] ar[facility] and sent. ED Course: 13:36 Patient visited by Etelvina Nagy. gr2 13:36 HANNA RAMÍREZ is Private Physician. gr2 13:36 Patient moved to Waiting gr2 13:37 Patient visited by Etelvina Nagy. gr2 13:37 Patient moved to Pre RCE gr2 13:40 Triage Initiated ead 15:45 Patient visited by Lydia Lamar PCA. ar3 15:54 Patient visited by Lydia Lamar PCA. ar3 16:22 Patient moved to ead 16:40 The patient / caregiver is instructed regarding the plan of care and ED course. bethaniek 16:43 Patient visited by Matias Saunders RN. jmk 17:44 [facility] mo1 17:44 Caroline Barcenas MD is Attending Physician. mo1 17:52 Patient visited by Matias Saunders RN. jmk 18:02 Patient visited by Mike Ayala PA. mo1 18:03 HANNA RAMÍREZ is Referral Physician. mo1 18:10 [facility] Payment Agreement was scanned into [employer] and attached to record. gjb 18:10 No IV's were initiated during this patient's visit. No procedures done that require jmk assistance. Order Results: There are currently no results for this order. Outcome: 18:03 Discharge ordered by Provider. mo1 18:09 Discharge Assessment: Patient awake, alert and oriented x 3. No cognitive and/or jmk functional deficits noted. Patient verbalized understanding of disposition instructions. patient administered narcotics - no. The following High Risk Discharge criteria are identified: None. Discharged to home ambulatory. Condition: good. Discharge instructions given to patient, Instructed on discharge instructions, follow up and referral plans. medication usage, Demonstrated understanding of instructions, medications, Pt was receptive of discharge instructions/ teaching. No special radiology studies were completed. Property :Personal belongings accompany Pt. 18:10 Patient left the ED. [facility] Signatures: Matias Saunders RN RN Lydia Lyle PCA [employer] ar3 Etelvina Nagy gr2 Mike Ayala PA PA mo1 Elvira Valentine RN RN ead Beck, Gabriela gjb Corrections: (The following items were deleted from the chart) 13:41 13:39 Presenting complaint: Patient states: pt signed in to ER earlier, had to leave [facility] prior to being seen due to an appointment. pt now returned to be seen. Pt here for sore throat since Saturday, reports hx of strep. pt states symptoms feel similar to strep. ead MTDD
--- NOTE | 2016-06-11 18:11 | EDDOCDS ---
Physician Documentation [facility] Name: Aden Zaman Jr Age: 21 yrs Sex: Male : 1995 Arrival Date: 06/11/2016 Time: 13:35 Bed I9 / 22 Private MD: HANNA RAMÍREZ Disposition: 06/11/16 18:03 Discharged to Home/Self Care. Impression: Acute upper respiratory infection, unspecified, Acute pharyngitis. - Condition is Stable. - Discharge Instructions: Pharyngitis, Viral Infections. - Medication Reconciliation, Local Pharmacy Hours form. - Follow up: HANNA RAMÍREZ; When: Call to arrange an appointment; Reason: Recheck today's complaints, Continuance of care. - Problem is new. - Symptoms are unchanged. Historical: - Allergies: no known allergies; - Home Meds: 1. clonidine HCl 0.2 mg Oral tab 1 tab 2 times per day 2. Zoloft 100 mg Oral tab once daily 3. proair 2 puffs every 6 hours as needed - PMHx: Allergies, Seasonal; Depression; Anxiety; ADHD; - PSHx: jaw surgery; - Social history: Smoking status: Patient uses tobacco products, current every day smoker. No barriers to communication noted, The patient speaks fluent Bhutanese, Speaks appropriately for age. - Family history: Not pertinent. - : The pt / caregiver states he / she is not on anticoagulants. Home medication list is obtained from the patient, [employer] import data. - Exposure Risk Screening:: None identified. Vital Signs: 06/11 13:36 BP 94 / 57; Pulse 58; Resp 18 S; Temp 97.5(O); Pulse Ox 100% on R/A; Weight 63.5 kg / gr2 139.99 lbs (R); Height 6 ft. 0 in. (182.88 cm) (R); Pain 4/10; 15:44 BP 100 / 56; Pulse 52; Resp 16; Temp 97.7; Pulse Ox 99% on R/A; Pain 6/10; ar3 13:36 Body Mass Index 18.99 (63.50 kg, 182.88 cm) gr2 MDM: 13:51 Strep Screen, Nursing ordered. jc4 15:56 GATS (NEGATIVE STREP SCREEN) Ordered. EDMS 18:10 Financial registration complete. zo 18:10 [facility] Payment Agreement was scanned into [email or web address] and attached to record. carrie Signatures: Dispatcher [employer] Matias Kennedy,RN RN Abby Perez Jennifer RN RN jc4 Mike Ayala PA PA mo1 Dunaway, Emily, RN RN Tammy Morris The chart was reviewed and I authenticate all verbal orders and agree with the evaluation and treatment provided.Attachments: 18:10 [facility] Payment Agreement gjedward MTDD
--- NOTE | 2016-06-13 19:12 | EDDOCDS ---
Nurse's Notes [facility] Name: Aden Zaman Jr Age: 21 yrs Sex: Male : 1995 Arrival Date: 06/11/2016 Time: 13:35 Bed I9 / 22 Private MD: HANNA RAMÍREZ Diagnosis: Acute upper respiratory infection, unspecified;Acute pharyngitis Presentation: 06/11 13:39 Presenting complaint: Patient states: pt signed in to ER earlier, had to leave prior to ead being seen due to an appointment. pt now returned to be seen. Pt here for sore throat since Saturday, reports hx of strep. pt states symptoms feels similar to strep. Risk factors: Stridor is not present. Drooling is not present. Shortness of breath is not present. Cellulitis is not present. Adult Sepsis Screening: The patient does not have new or worsening altered mentation. Patient's respiratory rate is less than 22. Systolic blood pressure is greater than 100. Patient has a qSOFA score of 0- Negative Sepsis Screen. Suicide/Homicide risk assessment- the patient denies having any suicidal and/or homicidal ideations and does not present with any other emotional, behavioral or mental health complaints. Status: Patient is not a truck repair service estimator or dependent. Transition of care: patient was not received from another setting of care. 13:39 Acuity: FRANKY Level 4 ead 13:39 Method Of Arrival: Walkin/Carried/Asstd ead Triage Assessment: 13:40 General: Appears in no apparent distress, comfortable, Behavior is appropriate for age, ead cooperative. Pain: Location: throat Pain currently is 6 out of 10 on a pain scale. HIV screening NA for this visit Offered previously. EENT: Reports pain when swallowing. Respiratory: Airway is patent Respiratory effort is even, unlabored. Derm: Skin is pink, warm & dry. Historical: - Allergies: no known allergies; - Home Meds: 1. clonidine HCl 0.2 mg Oral tab 1 tab 2 times per day 2. Zoloft 100 mg Oral tab once daily 3. proair 2 puffs every 6 hours as needed - PMHx: Allergies, Seasonal; Depression; Anxiety; ADHD; - PSHx: jaw surgery; - Social history: Smoking status: Patient uses tobacco products, current every day smoker. No barriers to communication noted, The patient speaks fluent Russian, Speaks appropriately for age. - Family history: Not pertinent. - : The pt / caregiver states he / she is not on anticoagulants. Home medication list is obtained from the patient, [employer] import data. - Exposure Risk Screening:: None identified. Screenin:40 Screening information is obtained from the patient. Fall risk: No risks identified. k Assistance ADL's: requires no assistance with activities of daily living. Abuse/DV Screen: The patient / caregiver reports he/she is: not in a situation that causes fear, pain or injury. Nutritional screening: No deficits noted. Advance Directives: Currently, there is no health care proxy. There is no active DNR order. There is no living will. There is no Power of Welder Tack. Advance directive information has not previously been placed in an [facility] medical record. home support is adequate. Assessment: 16:40 General: Appears skin warm and dry color satisfactory. moist pink oral mucosa. easily jmk accommodates own saliva. throat reddened without exudate. chest CTA, abd soft and non distended ith bowel sounds present x 4. 17:45 General: Appears patiently awaiting exam.. [facility] Vital Signs: 13:36 BP 94 / 57; Pulse 58; Resp 18 S; Temp 97.5(O); Pulse Ox 100% on R/A; Weight 63.5 kg gr2 (R); Height 6 ft. 0 in. (182.88 cm) (R); Pain 4/10; 15:44 BP 100 / 56; Pulse 52; Resp 16; Temp 97.7; Pulse Ox 99% on R/A; Pain 6/10; ar3 13:36 Body Mass Index 18.99 (63.50 kg, 182.88 cm) gr2 Vitals: 13:36 Log In Time: June 11, 2016 at 13:36. gr2 15:54 Strep Screen is obtained and tested: Negative, a GATSNEG culture is ordered in [facility] ar3 and sent. ED Course: 13:36 Patient visited by Etelvina Nagy. gr2 13:36 HANNA RAMÍREZ is Private Physician. gr2 13:36 Patient moved to Waiting gr2 13:37 Patient visited by Etelvina Nagy. gr2 13:37 Patient moved to Pre RCE gr2 13:40 Triage Initiated ead 15:45 Patient visited by Lydia Lamar PCA. ar3 15:54 Patient visited by Lydia Lamar PCA. ar3 16:22 Patient moved to ead 16:40 The patient / caregiver is instructed regarding the plan of care and ED course. jmk 16:43 Patient visited by Matias Saunders RN. jmk 17:44 Mike Ayala PA is PHCP. mo1 17:44 Caroline Barcenas MD is Attending Physician. mo1 17:52 Patient visited by Matias Saunders RN. jmk 18:02 Patient visited by Mike Ayala PA. mo1 18:03 HANNA RAMÍREZ is Referral Physician. mo1 18:10 [facility] Payment Agreement was scanned into [employer] and attached to record. gjb 18:10 No IV's were initiated during this patient's visit. No procedures done that require jmk assistance. 06/12 11:01 T-Sheet-- Draft Copy was scanned into [employer] and attached to record. gb Order Results: Lab Order: GATS (NEGATIVE STREP SCREEN); SPEC'M 06/11/16 16:01 Test: GATS CULTURE (NEG STREP SCR); Value: GATS RESULT NEGATIVE FOR STREP PYOGENES (GROUP A); Status: F Outcome: 06/11 18:03 Discharge ordered by Provider. mo1 18:09 Discharge Assessment: Patient awake, alert and oriented x 3. No cognitive and/or jmk functional deficits noted. Patient verbalized understanding of disposition instructions. patient administered narcotics - no. The following High Risk Discharge criteria are identified: None. Discharged to home ambulatory. Condition: good. Discharge instructions given to patient, Instructed on discharge instructions, follow up and referral plans. medication usage, Demonstrated understanding of instructions, medications, Pt was receptive of discharge instructions/ teaching. No special radiology studies were completed. Property :Personal belongings accompany Pt. 18:10 Patient left the ED. [place] Signatures: Matias Saunders,Arlin Orourke RN, Reg Reg gb Lydia Lamar PCA [employer] ar3 Etelvina Nagy gr2 Mike Ayala PA PA mo1 Elvira Valentine,Tammy Collazo RN Corrections: (The following items were deleted from the chart) 13:41 13:39 Presenting complaint: Patient states: pt signed in to ER earlier, had to leave ead prior to being seen due to an appointment. pt now returned to be seen. Pt here for sore throat since Saturday, reports hx of strep. pt states symptoms feel similar to strep. ead Chart Complete MTDD
--- NOTE | 2016-06-13 19:12 | EDDOCDS ---
Physician Documentation [facility] Name: Aden Zaman Jr Age: 21 yrs Sex: Male : 1995 Arrival Date: 06/11/2016 Time: 13:35 Bed I9 / 22 Private MD: HANNA RAMÍREZ Disposition: 06/11/16 18:03 Discharged to Home/Self Care. Impression: Acute upper respiratory infection, unspecified, Acute pharyngitis. - Condition is Stable. - Discharge Instructions: Pharyngitis, Viral Infections. - Medication Reconciliation, Local Pharmacy Hours form. - Follow up: HANNA RAMÍREZ; When: Call to arrange an appointment; Reason: Recheck today's complaints, Continuance of care. - Problem is new. - Symptoms are unchanged. Historical: - Allergies: no known allergies; - Home Meds: 1. clonidine HCl 0.2 mg Oral tab 1 tab 2 times per day 2. Zoloft 100 mg Oral tab once daily 3. proair 2 puffs every 6 hours as needed - PMHx: Allergies, Seasonal; Depression; Anxiety; ADHD; - PSHx: jaw surgery; - Social history: Smoking status: Patient uses tobacco products, current every day smoker. No barriers to communication noted, The patient speaks fluent Mozambican, Speaks appropriately for age. - Family history: Not pertinent. - : The pt / caregiver states he / she is not on anticoagulants. Home medication list is obtained from the patient, [employer] import data. - Exposure Risk Screening:: None identified. Vital Signs: 06/11 13:36 BP 94 / 57; Pulse 58; Resp 18 S; Temp 97.5(O); Pulse Ox 100% on R/A; Weight 63.5 kg / gr2 139.99 lbs (R); Height 6 ft. 0 in. (182.88 cm) (R); Pain 4/10; 15:44 BP 100 / 56; Pulse 52; Resp 16; Temp 97.7; Pulse Ox 99% on R/A; Pain 6/10; ar3 13:36 Body Mass Index 18.99 (63.50 kg, 182.88 cm) gr2 MDM: 13:51 Strep Screen, Nursing ordered. jc4 15:56 GATS (NEGATIVE STREP SCREEN) Ordered. EDMS 18:10 Financial registration complete. zo 18:10 [facility] Payment Agreement was scanned into [employer] and attached to record. gjb 06/12 11:01 T-Sheet-- Draft Copy was scanned into [employer] and attached to record. gb Signatures: Dispatcher [employer] EDMatias Terrell,RN RN Arlin Metcalf, Fermin Reg gb Abby Hameed Jennifer, RN RN jc4 Mike Ayala PA PA mo1 Dunaway, Emily, RN RN Tammy Morris The chart was reviewed and I authenticate all verbal orders and agree with the evaluation and treatment provided.Attachments: 06/11 18:10 [facility] Payment Agreement gjb 06/12 11:01 T-Sheet-- Draft Copy gb Chart Complete MTDD
--- NOTE | 2016-06-13 19:12 | EDDOCDS ---
Physician Documentation [facility] Name: Aden Zaman Jr Age: 21 yrs Sex: Male : 1995 Arrival Date: 06/11/2016 Time: 13:35 Bed I9 / 22 Private MD: HANNA RAMÍREZ Disposition: 06/11/16 18:03 Discharged to Home/Self Care. Impression: Acute upper respiratory infection, unspecified, Acute pharyngitis. - Condition is Stable. - Discharge Instructions: Pharyngitis, Viral Infections. - Medication Reconciliation, Local Pharmacy Hours form. - Follow up: HANNA RAMÍREZ; When: Call to arrange an appointment; Reason: Recheck today's complaints, Continuance of care. - Problem is new. - Symptoms are unchanged. Historical: - Allergies: no known allergies; - Home Meds: 1. clonidine HCl 0.2 mg Oral tab 1 tab 2 times per day 2. Zoloft 100 mg Oral tab once daily 3. proair 2 puffs every 6 hours as needed - PMHx: Allergies, Seasonal; Depression; Anxiety; ADHD; - PSHx: jaw surgery; - Social history: Smoking status: Patient uses tobacco products, current every day smoker. No barriers to communication noted, The patient speaks fluent Emirati, Speaks appropriately for age. - Family history: Not pertinent. - : The pt / caregiver states he / she is not on anticoagulants. Home medication list is obtained from the patient, [employer] import data. - Exposure Risk Screening:: None identified. Vital Signs: 06/11 13:36 BP 94 / 57; Pulse 58; Resp 18 S; Temp 97.5(O); Pulse Ox 100% on R/A; Weight 63.5 kg / gr2 139.99 lbs (R); Height 6 ft. 0 in. (182.88 cm) (R); Pain 4/10; 15:44 BP 100 / 56; Pulse 52; Resp 16; Temp 97.7; Pulse Ox 99% on R/A; Pain 6/10; ar3 13:36 Body Mass Index 18.99 (63.50 kg, 182.88 cm) gr2 MDM: 13:51 Strep Screen, Nursing ordered. jc4 15:56 GATS (NEGATIVE STREP SCREEN) Ordered. EDMS 18:10 Financial registration complete. zo 18:10 [facility] Payment Agreement was scanned into [employer] and attached to record. gjb 06/12 11:01 T-Sheet-- Draft Copy was scanned into [employer] and attached to record. gb Signatures: Dispatcher [employer] EDMatias Terrell,RN RN Arlin Metcalf, Fermin Reg gb Abby Hameed Jennifer, RN RN jc4 Mike Ayala PA PA mo1 Dunaway, Emily, RN RN Tammy Morris The chart was reviewed and I authenticate all verbal orders and agree with the evaluation and treatment provided.Attachments: 06/11 18:10 [facility] Payment Agreement gjb 06/12 11:01 T-Sheet-- Draft Copy gb Chart Complete MTDD
== END 2016-06-11 18:10 | disposition home or self-care (01) ==
LOC: M ED 13:35
DX: J02.9 Acute pharyngitis, unspecified (principal); J30.9 Allergic rhinitis, unspecified; F32.9 Major depressive disorder, single episode, unspecified; F41.9 Anxiety disorder, unspecified; F90.9 Attention-deficit hyperactivity disorder, unspecified type; F17.200 Nicotine dependence, unspecified, uncomplicated; Z79.899 Other long term (current) drug therapy

== ENCOUNTER → 2016-06-28 | Outpatient (CLI) | payer OTHER ==
--- NOTE | 2016-06-29 04:02 | REP ---
Clinical: Testicular pain. Technique: Lewis scale and color Doppler evaluation using linear and curved array transducer with color Doppler evaluation. Findings: The testicles and epididymi are relatively normal in contour, size, echogenicity, vascularity and overall appearance/contour. There is no evidence for intratesticular mass lesion, infectious/inflammatory process, with torsion. No obvious hydroceles or varicoceles are identified. Fluid is identified herniating into the right inguinal canal without obvious associated peritoneal fat or bowel. Right testicle measures 4.3 x 1.8 x 3.5 cm cm. Left testicle measures 4.7 x 2.4 x 3.2 cm cm. Impression: Small amount of fluid identified herniating into the right inguinal canal. Normal bilateral testicles and epididymi. Signed by Adam Hilliard MD 06/29/2016 03:53 A
== END ==
LOC: M RAD 13:37
PROVIDERS: ATTEND Nurse Practitioner Women's Health
DX: N50.819 Testicular pain, unspecified (principal)

== ENCOUNTER 2016-07-03 23:21 | Emergency (ER) | payer OTHER ==
--- NOTE | 2016-07-04 01:05 | EDDOCDS ---
Physician Documentation [facility] Name: Aden Zaman Jr Age: 21 yrs Sex: Male : 1995 Arrival Date: 07/03/2016 Time: 23:21 Bed 31 Private MD: Haroldo Mello Disposition: 07/04 00:47 Critical Care: Critical care not applicable. pc Disposition: 07/04/16 00:48 Discharged to Home/Self Care. Impression: Major depressive disorder, recurrent, mild. - Condition is Stable. - Discharge Instructions: Depression, Adult. - Medication Reconciliation, Local Pharmacy Hours form. - Follow up: Referral list, As provided by PFS; When: Call to arrange an appointment; Reason: To establish care. - Problem is new. - Symptoms have improved. HPI: 00:01 This 21 yrs old Male presents to ER via Walkin/Carried/Asstd with complaints pc of Depression. 00:01 The history is obtained from the patient. He is feeling generally depressed "over a pc bunch of things and I just need to talk to a counsellor". He denies SI or HI. He has not had any med changes recently. The patient has experienced similar episodes in the past, several times. The patient has been recently seen by their primary care provider. Historical: - Allergies: no known allergies; - Home Meds: 1. proair 2 puffs every 6 hours as needed (Last dose: Unknown) 2. Zoloft 100 mg Oral tab once daily pt has not taken in four days (Last dose: 06/29/2016) 3. clonidine HCl 0.2 mg Oral tab 1 tab 2 times per day has not taken them in 4 days (Last dose: 06/29/2016) - PMHx: ADHD; Allergies, Seasonal; Anxiety; Depression; - PSHx: jaw surgery; - The history from nurses notes was reviewed: and I agree with what is documented. - Social history: Smoking status: Patient uses tobacco products, current every day smoker. No barriers to communication noted, The patient speaks fluent Turkish, Speaks appropriately for age. - : The pt / caregiver states he / she is not on anticoagulants. Home medication list is obtained from the patient. - Hospitalizations: : No recent hospitalization is reported. - Exposure Risk Screening:: None identified. - Immunization history:: All immunizations up-to-date. - Family history: Not pertinent. - Social history:: the patient is a non-smoker, the patient does not drink alcohol. ROS: 00:01 All systems are negative except as listed. The psychiatric and neurological components pc are also addressed in the HPI. Exam: 00:01 General Appearance: alert, no acute distress. pc 00:01 ENT: ear, nose and throat normal, pharynx normal. 00:01 Eyes: pupils equal, round and reactive to light, extraocular motions intact. 00:01 Neck: The exam reveals no acute abnormalities. ROM is normal and painless. No nuchal rigidity is noted.. 00:01 Respiratory: breathing is even and unlabored, breath sounds are normal. 00:01 Cardiovascular: regular pulse rate, regular heart rhythm, normal heart sounds, equal and full pulses bilaterally. 00:01 Abdomen: soft, non-tender, no organomegaly, normal bowel sounds. 00:01 Skin: skin color is normal, warm, dry. 00:01 Extremities: The extremities have a grossly normal appearance, are non-tender, without acute ROM abnormalities. 00:01 Neuro: alert, oriented to person, place and time, cranial nerves normal as tested, no motor deficits, no sensory deficits. 00:01 Psych: mood is normal, affect is appropriate. Vital Signs: 07/03 23:22 BP 120 / 69; Pulse 77; Resp 18 S; Temp 98.7(O); Pulse Ox 96% on R/A; Weight 63.5 kg / gr2 139.99 lbs (R); Height 6 ft. 0 in. (182.88 cm) (R); Pain 0/10; 07/04 01:03 BP 121 / 73; Pulse 82; Resp 16; Temp 98.0; Pulse Ox 99% on R/A; Pain 0/10; cf2 07/03 23:22 Body Mass Index 18.99 (63.50 kg, 182.88 cm) gr2 MDM: 00:01 Differential diagnosis: depression. Plan: PFS eval. pc 00:25 CPR Record was scanned into [employer] and attached to record. cl 00:47 The patient has been medically cleared for psychiatric evaluation, admission and/or pc transfer. [employer] Act reporting: Reporting to the [employer] Act was not completed because. Data reviewed: old medical records, vital signs, nurses notes. Test interpretation: none. The patient has been re-examined and re-evaluated. The patient's symptoms have markedly improved after treatment. Other consultation: The ED die try out worker stamping was notified and will evaluate the patient. 00:47 Disposition: The historical points, examination findings, and any diagnostic results pc supporting the provided diagnosis, were discussed with the patient or legal guardian. The need for outpatient follow up with the provider listed on their discharge instructions was discussed. They were encouraged to return to [facility], or the nearest ED, if symptoms worsen/persist, or for any other questions/concerns. 01:03 Financial registration complete. hs2 01:03 [facility] Payment Agreement was scanned into [employer] and attached to record. hs2 Signatures: David Hull MD MD pc Sergio Nicole, LIZZIE PSA cl Julia ClaytonRN RN dsf Virgie Acuña, Reg Reg hs2 Luci BarrosRN RN cf2 The chart was reviewed and I authenticate all verbal orders and agree with the evaluation and treatment provided.Attachments: 01:03 [facility] Payment Agreement hs2 MTDD
--- NOTE | 2016-07-04 01:05 | EDDOCDS ---
Nurse's Notes [facility] Name: Aden Zaman Jr Age: 21 yrs Sex: Male : 1995 Arrival Date: 07/03/2016 Time: 23:21 Bed 31 Private MD: Haroldo Mello Diagnosis: Major depressive disorder, recurrent, mild Presentation: 07/03 23:27 Presenting complaint: Patient states: feeling depressed and needing to talk to someone. dsf Pt denies thoughts of SI or HI. Mental Health Triage Level: Level 1- Pt displays no suicidal or homicidal ideations and does not appear to be a danger to self or others. Adult Sepsis Screening: The patient does not have new or worsening altered mentation. Patient's respiratory rate is less than 22. Systolic blood pressure is greater than 100. Patient has a qSOFA score of 0- Negative Sepsis Screen. Suicide/Homicide risk assessment- the patient denies having any suicidal and/or homicidal ideations and does not present with any other emotional, behavioral or mental health complaints. Status: Patient is not a surgical services assistant or dependent. Transition of care: patient was not received from another setting of care. 23:27 Method Of Arrival: Walkin/Carried/Asstd dsf 23:27 Acuity: FRANKY Level 5 dsf Triage Assessment: 23:30 General: Appears in no apparent distress, Behavior is appropriate for age, cooperative, dsf flat. Pain: Denies pain. HIV screening NA for this visit Offered previously. Neurological: Level of Consciousness is awake, alert. Derm: Skin is pink, warm & dry. Historical: - Allergies: no known allergies; - Home Meds: 1. proair 2 puffs every 6 hours as needed (Last dose: Unknown) 2. Zoloft 100 mg Oral tab once daily pt has not taken in four days (Last dose: 06/29/2016) 3. clonidine HCl 0.2 mg Oral tab 1 tab 2 times per day has not taken them in 4 days (Last dose: 06/29/2016) - PMHx: ADHD; Allergies, Seasonal; Anxiety; Depression; - PSHx: jaw surgery; - The history from nurses notes was reviewed: and I agree with what is documented. - Social history: Smoking status: Patient uses tobacco products, current every day smoker. No barriers to communication noted, The patient speaks fluent Portuguese, Speaks appropriately for age. - : The pt / caregiver states he / she is not on anticoagulants. Home medication list is obtained from the patient. - Hospitalizations: : No recent hospitalization is reported. - Exposure Risk Screening:: None identified. - Immunization history:: All immunizations up-to-date. - Family history: Not pertinent. - Social history:: the patient is a non-smoker, the patient does not drink alcohol. Screenin/08 00:54 Screening information is obtained from the patient. Fall risk: No risks identified. cf2 Assistance ADL's: requires no assistance with activities of daily living. Abuse/DV Screen: The patient / caregiver reports he/she is: not in a situation that causes fear, pain or injury. Nutritional screening: No deficits noted. Advance Directives: Further advance directive information is declined. home support is adequate. Assessment: 00:54 Adult Sepsis Screening: The patient does not have new or worsening altered mentation. cf2 Patient's respiratory rate is less than 22. Systolic blood pressure is greater than 100. Patient has a qSOFA score of 0- Negative Sepsis Screen. General: Appears in no apparent distress, comfortable, Behavior is appropriate for age, cooperative. Pain: Denies pain. Neurological: No deficits noted. EENT: No deficits noted. Cardiovascular: No deficits noted. Respiratory: No deficits noted. GI: No deficits noted. : No deficits noted. Derm: No deficits noted. Musculoskeletal: No deficits noted. Injury Description: No known injury. 01:03 Reassessment: Patient appears in no apparent distress at this time. Patient states cf2 feeling better. Patient states symptoms have improved. Social Work Consult: 00:25 Social Work Note: Pt to ED c/o feeling depressed over situational issues including cl current housing situation. Pt denies SI/HI/AH/VH/substance abuse, currently resides at [facility] residence, states he is not happy there and would like to find a place with his GF but he is a convicted felon and has had px locating a place that will accept him. Pt vented well about his stressors, can easily CFS, is in no current outpt tx but receives counseling thru [facility]. PSA extended support and provided appropriate referrals for outpt MH and housing as well as 24 hr. crisis #'s. Vital Signs: 07/03 23:22 BP 120 / 69; Pulse 77; Resp 18 S; Temp 98.7(O); Pulse Ox 96% on R/A; Weight 63.5 kg gr2 (R); Height 6 ft. 0 in. (182.88 cm) (R); Pain 0/10; 07/04 01:03 BP 121 / 73; Pulse 82; Resp 16; Temp 98.0; Pulse Ox 99% on R/A; Pain 0/10; cf2 07/03 23:22 Body Mass Index 18.99 (63.50 kg, 182.88 cm) gr2 Vitals: 07/03 23:22 Log In Time: July 03, 2016 at 23:22. RN notified that patient meets Red Flag gr2 criteria. ED Course: 23:22 Patient visited by Etelvina Nagy. gr2 23:22 Haroldo Mello is Private Physician. gr2 23:22 Patient moved to Waiting gr2 23:27 Patient visited by Etelvina Nagy. gr2 23:27 Patient moved to Pre RCE gr2 23:28 Triage Initiated dsf 23:30 Patient moved to [facility] dsf 23:45 Patient visited by Marcel May. mas 23:54 David Hull MD is Attending Physician. pc 23:59 Patient moved to 31 mas 07/04 00:01 Patient visited by David Hull MD. pc 00:25 CPR Record was scanned into [employer] and attached to record. cl 00:48 Referral list, As provided by PFS is Referral Physician. pc 00:54 The patient / caregiver is instructed regarding the plan of care and ED course. Patient cf2 has correct armband on for positive identification. Placed in gown. Bed in low position. Call light in reach. Side rails up X 1. Side rails up X2. Property :Personal belongings accompany Pt. Door closed. Noise minimized. Visitors limited. Lights dimmed. Moved to private room. Verbal reassurance given. Warm blanket given. Pillow given. Head of bed elevated. 00:55 No IV's were initiated during this patient's visit. No procedures done that require cf2 assistance. 01:01 Luci Barros,RN is Primary Nurse. cf2 01:01 Patient visited by Luci Barros RN. cf2 01:02 Patient name changed from Aden\S\L\S\Austyn Jr\S\ to Aden\S\Srinivasa\S\Austyn Jr. EDMS 01:03 [facility] Payment Agreement was scanned into [employer] and attached to record. hs2 Attachments: 00:25 CPR Record cl Order Results: There are currently no results for this order. Outcome: 00:48 Discharge ordered by Provider. 01:03 Discharge Assessment: Patient awake, alert and oriented x 3. No cognitive and/or cf2 functional deficits noted. Patient verbalized understanding of disposition instructions. Patient awake and alert. Oriented to person, place and time. patient administered narcotics - no. The following High Risk Discharge criteria are identified: None. Discharged to home ambulatory. Condition: good Condition: stable. Discharge instructions given to patient, Instructed on discharge instructions, follow up and referral plans. Demonstrated understanding of instructions, Pt was receptive of discharge instructions/ teaching. No special radiology studies were completed. 01:04 Patient left the ED. cf2 Signatures: Dispatcher [employer] EDMS David Hull MD MD pc Sergio Nicole, PSA PSA Marcel Cano Desiree,RN RN dsf Etelvina Nagy gr2 Virgie Acuña, Reg Reg hs2 Luci Barros,MELVIN RN cf2 Corrections: (The following items were deleted from the chart) 07/03 23:33 23:27 Acuity: FRANKY Level 4 dsf dsf MTDD
--- NOTE | 2016-07-06 02:06 | EDDOCDS ---
Physician Documentation [facility] Name: Aden Zaman Jr Age: 21 yrs Sex: Male : 1995 Arrival Date: 07/03/2016 Time: 23:21 Bed 31 Private MD: Haroldo Mello Disposition: 07/04 00:47 Critical Care: Critical care not applicable. pc Disposition: 07/04/16 00:48 Discharged to Home/Self Care. Impression: Major depressive disorder, recurrent, mild. - Condition is Stable. - Discharge Instructions: Depression, Adult. - Medication Reconciliation, Local Pharmacy Hours form. - Follow up: Referral list, As provided by PFS; When: Call to arrange an appointment; Reason: To establish care. - Problem is new. - Symptoms have improved. HPI: 00:01 This 21 yrs old Male presents to ER via Walkin/Carried/Asstd with complaints pc of Depression. 00:01 The history is obtained from the patient. He is feeling generally depressed "over a pc bunch of things and I just need to talk to a counsellor". He denies SI or HI. He has not had any med changes recently. The patient has experienced similar episodes in the past, several times. The patient has been recently seen by their primary care provider. Historical: - Allergies: no known allergies; - Home Meds: 1. proair 2 puffs every 6 hours as needed (Last dose: Unknown) 2. Zoloft 100 mg Oral tab once daily pt has not taken in four days (Last dose: 06/29/2016) 3. clonidine HCl 0.2 mg Oral tab 1 tab 2 times per day has not taken them in 4 days (Last dose: 06/29/2016) - PMHx: ADHD; Allergies, Seasonal; Anxiety; Depression; - PSHx: jaw surgery; - The history from nurses notes was reviewed: and I agree with what is documented. - Social history: Smoking status: Patient uses tobacco products, current every day smoker. No barriers to communication noted, The patient speaks fluent Tajik, Speaks appropriately for age. - : The pt / caregiver states he / she is not on anticoagulants. Home medication list is obtained from the patient. - Hospitalizations: : No recent hospitalization is reported. - Exposure Risk Screening:: None identified. - Immunization history:: All immunizations up-to-date. - Family history: Not pertinent. - Social history:: the patient is a non-smoker, the patient does not drink alcohol. ROS: 00:01 All systems are negative except as listed. The psychiatric and neurological components pc are also addressed in the HPI. Exam: 00:01 General Appearance: alert, no acute distress. pc 00:01 ENT: ear, nose and throat normal, pharynx normal. 00:01 Eyes: pupils equal, round and reactive to light, extraocular motions intact. 00:01 Neck: The exam reveals no acute abnormalities. ROM is normal and painless. No nuchal rigidity is noted.. 00:01 Respiratory: breathing is even and unlabored, breath sounds are normal. 00:01 Cardiovascular: regular pulse rate, regular heart rhythm, normal heart sounds, equal and full pulses bilaterally. 00:01 Abdomen: soft, non-tender, no organomegaly, normal bowel sounds. 00:01 Skin: skin color is normal, warm, dry. 00:01 Extremities: The extremities have a grossly normal appearance, are non-tender, without acute ROM abnormalities. 00:01 Neuro: alert, oriented to person, place and time, cranial nerves normal as tested, no motor deficits, no sensory deficits. 00:01 Psych: mood is normal, affect is appropriate. Vital Signs: 07/03 23:22 BP 120 / 69; Pulse 77; Resp 18 S; Temp 98.7(O); Pulse Ox 96% on R/A; Weight 63.5 kg / gr2 139.99 lbs (R); Height 6 ft. 0 in. (182.88 cm) (R); Pain 0/10; 07/04 01:03 BP 121 / 73; Pulse 82; Resp 16; Temp 98.0; Pulse Ox 99% on R/A; Pain 0/10; cf2 07/03 23:22 Body Mass Index 18.99 (63.50 kg, 182.88 cm) gr2 MDM: 00:01 Differential diagnosis: depression. Plan: PFS eval. pc 00:25 CPR Record was scanned into [employer] and attached to record. cl 00:47 The patient has been medically cleared for psychiatric evaluation, admission and/or pc transfer. [employer] Safe Act reporting: Reporting to the [employer] Safe Act was not completed because. Data reviewed: old medical records, vital signs, nurses notes. Test interpretation: none. The patient has been re-examined and re-evaluated. The patient's symptoms have markedly improved after treatment. Other consultation: The ED pest control worker was notified and will evaluate the patient. 00:47 Disposition: The historical points, examination findings, and any diagnostic results pc supporting the provided diagnosis, were discussed with the patient or legal guardian. The need for outpatient follow up with the provider listed on their discharge instructions was discussed. They were encouraged to return to [facility], or the nearest ED, if symptoms worsen/persist, or for any other questions/concerns. 01:03 Financial registration complete. hs2 01:03 [facility] Payment Agreement was scanned into [employer] and attached to record. hs2 Signatures: David Hull MD MD pc Sergio Nicole, LIZZIE PSA cl Julia ClaytonRN RN dsf Virgie Acuña, Fermin Reg hs2 Luci Barros RN RN cf2 The chart was reviewed and I authenticate all verbal orders and agree with the evaluation and treatment provided.Attachments: 01:03 [facility] Payment Agreement hs2 Chart Complete MTDD
--- NOTE | 2016-07-06 02:06 | EDDOCDS ---
Physician Documentation [facility] Name: Aden Zaman Jr Age: 21 yrs Sex: Male : 1995 Arrival Date: 07/03/2016 Time: 23:21 Bed 31 Private MD: Haroldo Mello Disposition: 07/04 00:47 Critical Care: Critical care not applicable. pc Disposition: 07/04/16 00:48 Discharged to Home/Self Care. Impression: Major depressive disorder, recurrent, mild. - Condition is Stable. - Discharge Instructions: Depression, Adult. - Medication Reconciliation, Local Pharmacy Hours form. - Follow up: Referral list, As provided by PFS; When: Call to arrange an appointment; Reason: To establish care. - Problem is new. - Symptoms have improved. HPI: 00:01 This 21 yrs old Male presents to ER via Walkin/Carried/Asstd with complaints pc of Depression. 00:01 The history is obtained from the patient. He is feeling generally depressed "over a pc bunch of things and I just need to talk to a counsellor". He denies SI or HI. He has not had any med changes recently. The patient has experienced similar episodes in the past, several times. The patient has been recently seen by their primary care provider. Historical: - Allergies: no known allergies; - Home Meds: 1. proair 2 puffs every 6 hours as needed (Last dose: Unknown) 2. Zoloft 100 mg Oral tab once daily pt has not taken in four days (Last dose: 06/29/2016) 3. clonidine HCl 0.2 mg Oral tab 1 tab 2 times per day has not taken them in 4 days (Last dose: 06/29/2016) - PMHx: ADHD; Allergies, Seasonal; Anxiety; Depression; - PSHx: jaw surgery; - The history from nurses notes was reviewed: and I agree with what is documented. - Social history: Smoking status: Patient uses tobacco products, current every day smoker. No barriers to communication noted, The patient speaks fluent Khmer, Speaks appropriately for age. - : The pt / caregiver states he / she is not on anticoagulants. Home medication list is obtained from the patient. - Hospitalizations: : No recent hospitalization is reported. - Exposure Risk Screening:: None identified. - Immunization history:: All immunizations up-to-date. - Family history: Not pertinent. - Social history:: the patient is a non-smoker, the patient does not drink alcohol. ROS: 00:01 All systems are negative except as listed. The psychiatric and neurological components pc are also addressed in the HPI. Exam: 00:01 General Appearance: alert, no acute distress. pc 00:01 ENT: ear, nose and throat normal, pharynx normal. 00:01 Eyes: pupils equal, round and reactive to light, extraocular motions intact. 00:01 Neck: The exam reveals no acute abnormalities. ROM is normal and painless. No nuchal rigidity is noted.. 00:01 Respiratory: breathing is even and unlabored, breath sounds are normal. 00:01 Cardiovascular: regular pulse rate, regular heart rhythm, normal heart sounds, equal and full pulses bilaterally. 00:01 Abdomen: soft, non-tender, no organomegaly, normal bowel sounds. 00:01 Skin: skin color is normal, warm, dry. 00:01 Extremities: The extremities have a grossly normal appearance, are non-tender, without acute ROM abnormalities. 00:01 Neuro: alert, oriented to person, place and time, cranial nerves normal as tested, no motor deficits, no sensory deficits. 00:01 Psych: mood is normal, affect is appropriate. Vital Signs: 07/03 23:22 BP 120 / 69; Pulse 77; Resp 18 S; Temp 98.7(O); Pulse Ox 96% on R/A; Weight 63.5 kg / gr2 139.99 lbs (R); Height 6 ft. 0 in. (182.88 cm) (R); Pain 0/10; 07/04 01:03 BP 121 / 73; Pulse 82; Resp 16; Temp 98.0; Pulse Ox 99% on R/A; Pain 0/10; cf2 07/03 23:22 Body Mass Index 18.99 (63.50 kg, 182.88 cm) gr2 MDM: 00:01 Differential diagnosis: depression. Plan: PFS eval. pc 00:25 CPR Record was scanned into [employer] and attached to record. cl 00:47 The patient has been medically cleared for psychiatric evaluation, admission and/or pc transfer. [employer] Safe Act reporting: Reporting to the [employer] Safe Act was not completed because. Data reviewed: old medical records, vital signs, nurses notes. Test interpretation: none. The patient has been re-examined and re-evaluated. The patient's symptoms have markedly improved after treatment. Other consultation: The ED track repair worker was notified and will evaluate the patient. 00:47 Disposition: The historical points, examination findings, and any diagnostic results pc supporting the provided diagnosis, were discussed with the patient or legal guardian. The need for outpatient follow up with the provider listed on their discharge instructions was discussed. They were encouraged to return to [facility], or the nearest ED, if symptoms worsen/persist, or for any other questions/concerns. 01:03 Financial registration complete. hs2 01:03 [facility] Payment Agreement was scanned into [employer] and attached to record. hs2 Signatures: David Hull MD MD pc Sergio Nicole, LIZZIE PSA cl Julia ClaytonRN RN dsf Virgie Acuña, Fermin Reg hs2 Luci Barros RN RN cf2 The chart was reviewed and I authenticate all verbal orders and agree with the evaluation and treatment provided.Attachments: 01:03 [facility] Payment Agreement hs2 Chart Complete MTDD
--- NOTE | 2016-07-06 02:06 | EDDOCDS ---
Nurse's Notes [facility] Name: Aden Zaman Jr Age: 21 yrs Sex: Male : 1995 Arrival Date: 07/03/2016 Time: 23:21 Bed 31 Private MD: Haroldo Mello Diagnosis: Major depressive disorder, recurrent, mild Presentation: 07/03 23:27 Presenting complaint: Patient states: feeling depressed and needing to talk to someone. dsf Pt denies thoughts of SI or HI. Mental Health Triage Level: Level 1- Pt displays no suicidal or homicidal ideations and does not appear to be a danger to self or others. Adult Sepsis Screening: The patient does not have new or worsening altered mentation. Patient's respiratory rate is less than 22. Systolic blood pressure is greater than 100. Patient has a qSOFA score of 0- Negative Sepsis Screen. Suicide/Homicide risk assessment- the patient denies having any suicidal and/or homicidal ideations and does not present with any other emotional, behavioral or mental health complaints. Status: Patient is not a library services dean or dependent. Transition of care: patient was not received from another setting of care. 23:27 Method Of Arrival: Walkin/Carried/Asstd dsf 23:27 Acuity: FRANKY Level 5 dsf Triage Assessment: 23:30 General: Appears in no apparent distress, Behavior is appropriate for age, cooperative, dsf flat. Pain: Denies pain. HIV screening NA for this visit Offered previously. Neurological: Level of Consciousness is awake, alert. Derm: Skin is pink, warm & dry. Historical: - Allergies: no known allergies; - Home Meds: 1. proair 2 puffs every 6 hours as needed (Last dose: Unknown) 2. Zoloft 100 mg Oral tab once daily pt has not taken in four days (Last dose: 06/29/2016) 3. clonidine HCl 0.2 mg Oral tab 1 tab 2 times per day has not taken them in 4 days (Last dose: 06/29/2016) - PMHx: ADHD; Allergies, Seasonal; Anxiety; Depression; - PSHx: jaw surgery; - The history from nurses notes was reviewed: and I agree with what is documented. - Social history: Smoking status: Patient uses tobacco products, current every day smoker. No barriers to communication noted, The patient speaks fluent Frisian, Speaks appropriately for age. - : The pt / caregiver states he / she is not on anticoagulants. Home medication list is obtained from the patient. - Hospitalizations: : No recent hospitalization is reported. - Exposure Risk Screening:: None identified. - Immunization history:: All immunizations up-to-date. - Family history: Not pertinent. - Social history:: the patient is a non-smoker, the patient does not drink alcohol. Screenin/08 00:54 Screening information is obtained from the patient. Fall risk: No risks identified. cf2 Assistance ADL's: requires no assistance with activities of daily living. Abuse/DV Screen: The patient / caregiver reports he/she is: not in a situation that causes fear, pain or injury. Nutritional screening: No deficits noted. Advance Directives: Further advance directive information is declined. home support is adequate. Assessment: 00:54 Adult Sepsis Screening: The patient does not have new or worsening altered mentation. cf2 Patient's respiratory rate is less than 22. Systolic blood pressure is greater than 100. Patient has a qSOFA score of 0- Negative Sepsis Screen. General: Appears in no apparent distress, comfortable, Behavior is appropriate for age, cooperative. Pain: Denies pain. Neurological: No deficits noted. EENT: No deficits noted. Cardiovascular: No deficits noted. Respiratory: No deficits noted. GI: No deficits noted. : No deficits noted. Derm: No deficits noted. Musculoskeletal: No deficits noted. Injury Description: No known injury. 01:03 Reassessment: Patient appears in no apparent distress at this time. Patient states cf2 feeling better. Patient states symptoms have improved. Social Work Consult: 00:25 Social Work Note: Pt to ED c/o feeling depressed over situational issues including cl current housing situation. Pt denies SI/HI/AH/VH/substance abuse, currently resides at [facility], states he is not happy there and would like to find a place with his GF but he is a convicted felon and has had px locating a place that will accept him. Pt vented well about his stressors, can easily CFS, is in no current outpt tx but receives counseling thru [facility]. PSA extended support and provided appropriate referrals for outpt MH and housing as well as 24 hr. crisis #'s. Vital Signs: 07/03 23:22 BP 120 / 69; Pulse 77; Resp 18 S; Temp 98.7(O); Pulse Ox 96% on R/A; Weight 63.5 kg gr2 (R); Height 6 ft. 0 in. (182.88 cm) (R); Pain 0/10; 07/04 01:03 BP 121 / 73; Pulse 82; Resp 16; Temp 98.0; Pulse Ox 99% on R/A; Pain 0/10; cf2 07/03 23:22 Body Mass Index 18.99 (63.50 kg, 182.88 cm) gr2 Vitals: 07/03 23:22 Log In Time: July 03, 2016 at 23:22. RN notified that patient meets Red Flag gr2 criteria. ED Course: 23:22 Patient visited by Etelvina Nagy. gr2 23:22 Haroldo Mello is Private Physician. gr2 23:22 Patient moved to Waiting gr2 23:27 Patient visited by Etelvina Nagy. gr2 23:27 Patient moved to Pre RCE gr2 23:28 Triage Initiated dsf 23:30 Patient moved to [facility] dsf 23:45 Patient visited by Marcel May. mas 23:54 David Hull MD is Attending Physician. pc 23:59 Patient moved to 31 mas 07/04 00:01 Patient visited by David Hull MD. pc 00:25 CPR Record was scanned into [employer] and attached to record. cl 00:48 Referral list, As provided by [facility] is Referral Physician. pc 00:54 The patient / caregiver is instructed regarding the plan of care and ED course. Patient cf2 has correct armband on for positive identification. Placed in gown. Bed in low position. Call light in reach. Side rails up X 1. Side rails up X2. Property :Personal belongings accompany Pt. Door closed. Noise minimized. Visitors limited. Lights dimmed. Moved to private room. Verbal reassurance given. Warm blanket given. Pillow given. Head of bed elevated. 00:55 No IV's were initiated during this patient's visit. No procedures done that require cf2 assistance. 01:01 Luci Barros,RN is Primary Nurse. cf2 01:01 Patient visited by Luci Barros RN. cf2 01:02 Patient name changed from Aden\S\L\S\Austyn Jr\S\ to Aden\S\Srinivasa\S\Austyn Jr. EDMS 01:03 [facility] Payment Agreement was scanned into [employer] and attached to record. hs2 04:34 Patient name changed from Aden\S\Srinivasa\S\Austyn Jr\S\ to Aden\S\L\S\Austyn Jr. EDMS Attachments: 00:25 CPR Record cl Order Results: There are currently no results for this order. Outcome: 00:48 Discharge ordered by Provider. pc 01:03 Discharge Assessment: Patient awake, alert and oriented x 3. No cognitive and/or cf2 functional deficits noted. Patient verbalized understanding of disposition instructions. Patient awake and alert. Oriented to person, place and time. patient administered narcotics - no. The following High Risk Discharge criteria are identified: None. Discharged to home ambulatory. Condition: good Condition: stable. Discharge instructions given to patient, Instructed on discharge instructions, follow up and referral plans. Demonstrated understanding of instructions, Pt was receptive of discharge instructions/ teaching. No special radiology studies were completed. 01:04 Patient left the ED. cf2 Signatures: Dispatcher [employer] EDMS David Hull MD MD pc Bonnie, Sergio, PSA PSA cl Marcel May Desiree,MELVIN RN dsf Etelvina Nagy gr2 Virgie Acuña, Reg Reg hs2 Luci Barros RN RN cf2 Corrections: (The following items were deleted from the chart) 07/03 23:33 23:27 Acuity: FRANKY Level 4 dsf dsf Chart Complete MTDD
== END 2016-07-04 01:04 | disposition home or self-care (01) ==
LOC: M ED 23:21
DX: F33.0 Major depressive disorder, recurrent, mild (principal); F90.9 Attention-deficit hyperactivity disorder, unspecified type; J30.9 Allergic rhinitis, unspecified; F41.9 Anxiety disorder, unspecified; F17.210 Nicotine dependence, cigarettes, uncomplicated; Z79.899 Other long term (current) drug therapy

== ENCOUNTER → 2016-08-09 | Outpatient (REF) | payer OTHER ==
[~2016-08-09] MED LIST: CLON0.2T; KETO10TAB PO; ROBA500T PO; SERT-138
== END ==
LOC: M SFHCLERA 11:44
PROVIDERS: ATTEND Nurse Practitioner Family
DX: J06.9 Acute upper respiratory infection, unspecified (principal)

== ENCOUNTER 2016-08-11 17:53 | Emergency (ER) | payer OTHER ==
[~2016-08-11] VITALS: Ht 182.9 cm; Wt 66.2 kg
[2016-08-11] MEDS ORDERED: CLON0.2T (18:02)
[2016-08-11] MEDS ORDERED: SERT-138 (18:02)
[2016-08-11] MEDS ORDERED: KETOROLAC 30 MG/ML VIAL (J1885) IM ONE (19:00)
[2016-08-11] MEDS ORDERED: METHOCARBAMOL 500 MG TAB PO ONE (19:00)
--- NOTE | 2016-08-11 19:30 | REPUSA ---
HISTORY: Trauma COMPARISON: No relevant comparison is available at the time of interpretation. CT C-SPINE with reformations: C1 through T1: There is a limbus vertebra of C5, with a osteophyte at the anterior superior endplate. Neural rings intact without fracture. Dens intact. Central canal: Patent without neural encroachment. Alignment (by reformations): No acute listhesis. There is straightening of the normal cervical lordos is and mild dextrocurvature which may be due to paraspinal muscle spasm. IMPRESSION: 1. Incidental C5 limbus vertebra. 2. Loss of normal cervical curvatures may indicate paraspinal muscle spasm. 3. No acute fracture of the C-spine.
[2016-08-11] MEDS ORDERED: KETO10TAB PO (20:20)
[2016-08-11] MEDS ORDERED: ROBA500T PO (20:20)
[2016-08-11 20:32] VITALS: BP 130/81
--- NOTE | 2016-08-12 09:40 | REP ---
Right forearm: Two views. History: Injury in a fall. Findings: AP and lateral views of the right forearm show some soft tissue swelling dorsally over the forearm on the lateral radiograph. No fracture or subluxation is seen. No foreign body is seen. Impression: No fracture noted. Signed by Joe Anne MD 08/12/2016 09:55 A
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
--- NOTE | 2016-08-12 09:41 | REP ---
Lumbar spine series: Five views. History: Injury in a fall. Findings: Lumbar vertebral body heights are preserved and alignment is normal. No fracture or collapse is seen. Disc spaces are maintained. Pedicles and posterior elements are intact. Psoas margins are symmetric. Sacrum and SI joints are unremarkable. Impression: Negative lumbar spine series. Signed by Joe Anne MD 08/12/2016 09:55 A
== END 2016-08-11 20:37 | disposition home or self-care (01) ==
LOC: M ED 19:28
DX: M54.2 Cervicalgia (principal); S20.229A Contusion of unspecified back wall of thorax, initial encounter; S50.11XA Contusion of right forearm, initial encounter; W00.0XXA Fall on same level due to ice and snow, initial encounter; Y92.093 Driveway of other non-institutional residence as the place of occurrence of the external cause; Y93.01 Activity, walking, marching and hiking; Y99.9 Unspecified external cause status

== ENCOUNTER → 2017-08-22 | Outpatient (CLI) | payer MEDICAID, OTHER ==
[2017-08-22 12:54] LABS: CHOLESTEROL LEVEL 60 MG/DL (<200); CHOLESTEROL RISK RATIO 1.363 (<5); HDL CHOLESTEROL 44 MG/DL (>40); LDL CHOLESTEROL 9.8 MG/DL (<100); NON-HDL-C 16 MG/DL; TRIGLYCERIDES LEVEL 31 MG/DL (<150)
[2017-08-22 13:27] LABS: ESTIMATED AVERAGE GLUCOSE 108 MG/DL (60-110); HEMOGLOBIN A1c 5.4 %
== END ==
LOC: M LAB 12:00
DX: F31.9 Bipolar disorder, unspecified (principal)
CPT/HCPCS: 83036

== ENCOUNTER 2017-09-26 11:24 | Emergency (ER) | payer MEDICAID ==
[2017-09-26] MEDS: ONDANSETRON 4 MG ORAL DISINTEGRATING TAB (Q0162 PER 1MG) PO ×2 (10:50)
[2017-09-26] MEDS: ACETAMINOPHEN 325 MG TAB PO ×2 (10:50)
[2017-09-26] MEDS: AUGMENTIN 875 MG TAB PO ×2 (11:29)
[2017-09-26] MEDS: MECLIZINE 25 MG TABLET PO ×2 (11:30)
== END 2017-09-26 11:35 | disposition home or self-care (01) ==
LOC: M ED 11:24
DX: J01.90 Acute sinusitis, unspecified (principal); R11.2 Nausea with vomiting, unspecified; F41.9 Anxiety disorder, unspecified
CPT/HCPCS: Q0162

== ENCOUNTER 2018-01-12 12:53 | Emergency (ER) | payer MEDICAID ==
[2018-01-12] MEDS: PERCOCET 5MG/325MG TAB PO (13:30)
[2018-01-12] MEDS: BACLOFEN 10 MG TAB PO (13:30)
== END 2018-01-12 15:46 | disposition home or self-care (01) ==
LOC: M ED 12:53
DX: S33.5XXA Sprain of ligaments of lumbar spine, initial encounter (principal); V19.9XXA Pedal cyclist (driver) (passenger) injured in unspecified traffic accident, initial encounter; Y92.9 Unspecified place or not applicable; Y93.89 Activity, other specified; Y99.9 Unspecified external cause status; F41.9 Anxiety disorder, unspecified; Z77.098 Contact with and (suspected) exposure to other hazardous, chiefly nonmedicinal, chemicals
CPT/HCPCS: 72110

== ENCOUNTER 2018-02-12 17:54 | Emergency (ER) | payer MEDICAID | END 2018-02-12 18:36 | disposition home or self-care (01) | LOC: M ED 17:54 | DX: R55 Syncope and collapse (principal); R06.4 Hyperventilation; F17.210 Nicotine dependence, cigarettes, uncomplicated | CPT/HCPCS: 99284 ==

== ENCOUNTER 2018-03-27 08:53 | Emergency (ER) | payer OTHER, MEDICAID ==
[2018-03-27] MEDS: NS 1,000 ML IV (09:45)
[2018-03-27 10:38] LABS: HEMOGLOBIN 16.1 g/dl (13.5-17.5); MEAN CORPUSCULAR HEMOGLOBIN 30.2 pg (27.0-33.0); MEAN CORPUSCULAR HGB CONC 34.3 g/dl (32.0-36.5); MEAN CORPUSCULAR VOLUME 88.2 fl (80.0-96.0); PLATELET COUNT, AUTOMATED 257 10^3/uL (150-450); RED BLOOD COUNT 5.33 10^6/uL (4.30-6.10); RED CELL DISTRIBUTION WIDTH 11.9 % (11.5-14.5); WHITE BLOOD COUNT 10.1 10^3/uL (4.0-10.0)
[2018-03-27 11:21] LABS: ACETAMINOPHEN LEVEL < 2.0 UG/ML (10.0-30.0); ALBUMIN 4.1 GM/DL (3.2-5.2); ALBUMIN/GLOBULIN RATIO 1.52 (1.00-1.93); ALKALINE PHOSPHATASE 51 U/L (45-117); ALT/SGPT 17 U/L (12-78); ANION GAP 6 MEQ/L (8-16); AST/SGOT 21 U/L (7-37); BILIRUBIN,DIRECT 0.2 MG/DL (0.0-0.2); BILIRUBIN,TOTAL 0.8 MG/DL (0.2-1.0); BLOOD UREA NITROGEN 12 MG/DL (7-18); CALCIUM LEVEL 8.8 MG/DL (8.5-10.1); CARBON DIOXIDE LEVEL 27 MEQ/L (21-32); CHLORIDE LEVEL 107 MEQ/L (98-107); ETHYL ALCOHOL (ETHANOL) < 0.003 % (0.000-0.010); GLOMERULAR FILTRATION RATE > 60.0 (>60); GLUCOSE, FASTING 90 MG/DL (70-100); POTASSIUM SERUM 4.3 MEQ/L (3.5-5.1); SODIUM LEVEL 140 MEQ/L (136-145); THYROID STIMULATING HORMONE 0.855 uIU/ML (0.358-3.740); TOTAL PROTEIN 6.8 GM/DL (6.4-8.2)
[2018-03-27 12:05] LABS: AMPHETAMINES LEVEL URINE NEGATIVE (NEGATIVE); BARBITURATES URINE NEGATIVE (NEGATIVE); BENZODIAZEPINES URINE NEGATIVE (NEGATIVE); CANNABINOIDS URINE NEGATIVE (NEGATIVE); COCAINE METABOLITE URINE NEGATIVE (NEGATIVE); METHADONE URINE NEGATIVE (NEGATIVE); OPIATES URINE NEGATIVE (NEGATIVE); PHENCYCLIDINE URINE NEGATIVE (NEGATIVE)
== END 2018-03-27 13:04 | disposition home or self-care (01) ==
LOC: M ED 08:53
DX: F41.0 Panic disorder [episodic paroxysmal anxiety] (principal); F33.9 Major depressive disorder, recurrent, unspecified
CPT/HCPCS: 71046

== ENCOUNTER 2018-04-20 01:40 | Emergency (ER) | payer OTHER ==
[2018-04-20] MEDS: ACETAMINOPHEN TAB 650MG DOSE (2X325MG) PO (03:15)
[2018-04-20] MEDS: LIDOCAINE VISCOUS 2% SOLN 15ML UDC SS (03:31)
== END 2018-04-20 03:36 | disposition home or self-care (01) ==
LOC: M ED 01:40
DX: J06.9 Acute upper respiratory infection, unspecified (principal)
CPT/HCPCS: 87880

== ENCOUNTER 2018-04-27 21:18 | Emergency (ER) | payer OTHER ==
[2018-04-27 22:00] LABS: BASO % 0.3 % (0.0-1.0); EOS # 0.2 10^3/uL (0.0-0.50); EOS % 1.6 % (0.0-3.0); HEMATOCRIT 48.1 % (42.0-52.0); HEMOGLOBIN 16.1 g/dl (13.5-17.5); IMMATURE GRANULOCYTE % 0.4 % (0-3.0); LYMPH # 1.4 10^3/uL (1.5-6.5); LYMPH % 14.5 % (24.0-44.0); MEAN CORPUSCULAR HEMOGLOBIN 29.7 pg (27.0-33.0); MEAN CORPUSCULAR HGB CONC 33.5 g/dl (32.0-36.5); MEAN CORPUSCULAR VOLUME 88.6 fl (80.0-96.0); MONO # 0.5 10^3/uL (0.0-0.8); MONO % 5.6 % (0.0-5.0); NEUTROPHILS # 7.5 10^3/uL (1.8-7.7); NEUTROPHILS % 77.6 % (36.0-66.0); PLATELET COUNT, AUTOMATED 316 10^3/uL (150-450); RED BLOOD COUNT 5.43 10^6/uL (4.30-6.10); RED CELL DISTRIBUTION WIDTH 11.9 % (11.5-14.5); WHITE BLOOD COUNT 9.7 10^3/uL (4.0-10.0)
[2018-04-27] MEDS: PANTOPRAZOLE 40MG INJ (PROTONIX) (C9113) IV (22:00)
[2018-04-27] MEDS: NS 1,000 ML IV (22:00)
[2018-04-27] MEDS: ONDANSETRON 4MG/2ML VIAL (J2405) IV (22:00)
[2018-04-27 22:31] LABS: ALBUMIN 4.2 GM/DL (3.2-5.2); ALKALINE PHOSPHATASE 63 U/L (45-117); ALT/SGPT 25 U/L (12-78); ANION GAP 6 MEQ/L (8-16); AST/SGOT 15 U/L (7-37); BILIRUBIN,DIRECT 0.1 MG/DL (0.0-0.2); BILIRUBIN,TOTAL 0.4 MG/DL (0.2-1.0); BLOOD UREA NITROGEN 10 MG/DL (7-18); CALCIUM LEVEL 9.4 MG/DL (8.5-10.1); CARBON DIOXIDE LEVEL 32 MEQ/L (21-32); CHLORIDE LEVEL 102 MEQ/L (98-107); CREATININE FOR GFR 1.02 MG/DL (0.70-1.30); GLOMERULAR FILTRATION RATE > 60.0 (>60); GLUCOSE, FASTING 95 MG/DL (70-100); LIPASE 112 U/L (73-393); POTASSIUM SERUM 3.9 MEQ/L (3.5-5.1); SODIUM LEVEL 140 MEQ/L (136-145); TOTAL PROTEIN 7.7 GM/DL (6.4-8.2)
== END 2018-04-27 23:09 | disposition home or self-care (01) ==
LOC: M ED 21:18
DX: K52.9 Noninfective gastroenteritis and colitis, unspecified (principal); R05 Cough
CPT/HCPCS: C9113

== ENCOUNTER 2018-04-30 10:33 | Emergency (ER) | payer OTHER | END 2018-04-30 11:36 | disposition home or self-care (01) | LOC: M ED 10:33 | DX: J06.9 Acute upper respiratory infection, unspecified (principal) | CPT/HCPCS: 99282 ==

== ENCOUNTER 2018-05-04 15:08 | Emergency (ER) | payer OTHER ==
[2018-05-04] MEDS: predniSONE 20 MG TAB PO (16:08)
[2018-05-04] MEDS: diphenhydrAMINE 50 MG CAP PO (16:08)
== END 2018-05-04 17:15 | disposition home or self-care (01) ==
LOC: M ED 15:08
DX: L50.0 Allergic urticaria (principal); F17.210 Nicotine dependence, cigarettes, uncomplicated
CPT/HCPCS: 99283

== ENCOUNTER 2018-06-13 15:32 | Emergency (ER) | payer OTHER ==
[~2018-06-13] VITALS: Ht 185.4 cm; Wt 65.0 kg
[~2018-06-13 15:32] MED LIST changes: +AUGM875T28 PO; +BENA25CA4 PO; +CYCL5TAB PO; +IBUP-1022 PO; +MECL1CHW2 PO; +MUCI600T37 PO; +NORCOTAB PO; +PRED20TA PO; +SUDA30TA8 PO; +ZOFR4TAB14 PO
[2018-06-13 16:36] VITALS: BP 109/66
== END 2018-06-13 16:37 | disposition home or self-care (01) ==
LOC: M ED 15:32
DX: J20.9 Acute bronchitis, unspecified (principal); B34.9 Viral infection, unspecified; F33.9 Major depressive disorder, recurrent, unspecified; F41.9 Anxiety disorder, unspecified

== ENCOUNTER 2018-08-21 19:31 | Emergency (ER) | payer OTHER ==
[~2018-08-21] VITALS: Ht 185.4 cm; Wt 66.7 kg
[~2018-08-21 19:31] MED LIST changes: +HYDR-3715 PO; +MECL1CHW PO; -MECL1CHW2 PO; -NORCOTAB PO
[2018-08-21] MEDS ORDERED: IBUP-1022 PO (21:42)
[2018-08-21] MEDS ORDERED: IBUPROFEN 600 MG TAB PO ONE (21:45)
[2018-08-21 21:48] VITALS: BP 142/78
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
== END 2018-08-21 21:49 | disposition home or self-care (01) ==
LOC: M ED 19:31
DX: S60.221A Contusion of right hand, initial encounter (principal); W22.8XXA Striking against or struck by other objects, initial encounter; Y92.9 Unspecified place or not applicable; Y93.89 Activity, other specified; Y99.9 Unspecified external cause status; Z72.0 Tobacco use

== ENCOUNTER 2018-12-09 19:45 | Emergency (ER) | payer OTHER ==
[~2018-12-09] VITALS: Ht 182.9 cm; Wt 65.0 kg
[~2018-12-09 19:45] MED LIST changes: +SERT25TA88 PO; +TRAZ1TAB10 PO
[2018-12-09 21:34] VITALS: BP 131/81
== END 2018-12-09 21:37 | disposition home or self-care (01) ==
LOC: M ED 19:45
DX: F41.0 Panic disorder [episodic paroxysmal anxiety] (principal); Z60.9 Problem related to social environment, unspecified; F17.200 Nicotine dependence, unspecified, uncomplicated; Z79.899 Other long term (current) drug therapy

== ENCOUNTER 2019-02-22 13:53 | Emergency (ER) | payer OTHER ==
[~2019-02-22] VITALS: Ht 188 cm; Wt 66.2 kg
[2019-02-22] MEDS ORDERED: IBUP-1022 PO (16:24)
[2019-02-22 16:28] VITALS: BP 122/76
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
== END 2019-02-22 16:33 | disposition home or self-care (01) ==
LOC: M ED 13:53
DX: S63.92XA Sprain of unspecified part of left wrist and hand, initial encounter (principal); S60.221A Contusion of right hand, initial encounter; F17.210 Nicotine dependence, cigarettes, uncomplicated; V18.0XXA Pedal cycle driver injured in noncollision transport accident in nontraffic accident, initial encounter; Y92.9 Unspecified place or not applicable; Y93.55 Activity, bike riding

== ENCOUNTER 2019-06-29 14:37 | Emergency (ER) | payer OTHER ==
[~2019-06-29] VITALS: Ht 188 cm; Wt 69.2 kg
[~2019-06-29 14:37] MED LIST changes: +SERT25TA21 PO; -SERT25TA88 PO
--- NOTE | 2019-06-29 16:28 | REP ---
PA and lateral chest: Comparison is 03/27/2018. The lung betancur are clear. The cardiac size is normal. The sera, mediastinum, and skeletal structures are unremarkable except for mild thoracic scoliosis, unchanged. Impression: Negative PA and lateral chest. There is no interval change. Electronically Signed by Kailash Escobedo MD 06/29/2019 04:19 P
[2019-06-29] MEDS ORDERED: FLON1SPR NARES (16:35)
[2019-06-29] MEDS ORDERED: IBUP-1022 PO (16:35)
[2019-06-29] MEDS ORDERED: ZYRTTAB8 PO (16:35)
[2019-06-29] MEDS ORDERED: TESS100C PO (16:35)
[2019-06-29 16:43] VITALS: BP 112/66
== END 2019-06-29 16:57 | disposition home or self-care (01) ==
LOC: M ED 14:37
DX: J30.9 Allergic rhinitis, unspecified (principal); H65.03 Acute serous otitis media, bilateral; M41.24 Other idiopathic scoliosis, thoracic region; F17.210 Nicotine dependence, cigarettes, uncomplicated; Z79.899 Other long term (current) drug therapy